=== PATIENT | male | born 1940 | race Two or more races ===

== ENCOUNTER 2021-12-24 08:44 | Outpatient (REF) | payer OTHER, SELFPAY ==
[2021-12-24 09:16] LABS: MANUAL DIFF FLAG NO
[2021-12-24 09:51] LABS: Basophils Percent Auto 0.5 % (0-2); Eosinophils Absolute Auto 0.1 X10*3/uL (0.0-0.4); Eosinophils Percent Auto 0.7 % (0-4); Hematocrit 45.8 % (42.0-52.0); Hemoglobin 14.8 g/dl (14.0-18.0); Imm Gran Abs Auto 0.01 X10*3/uL (0.00-0.03); Imm Gran Pct Auto 0.1 % (0.0-0.4); Lymphocytes Absolute Auto 2.5 X10*3/uL (1.2-4.9); Lymphocytes Percent Auto 29.5 % (20-40); Mean Corpuscular HGB Conc 32.3 g/dl (31.0-36.0); Mean Corpuscular Hemoglobin 28.4 pg (27.0-33.0); Mean Corpuscular Volume 87.7 fL (80.0-98.0); Monocytes Absolute Auto 0.9 X10*3/uL (0.1-1.2); Monocytes Percent Auto 11.3 % (2-11); Neutrophils Absolute Auto 4.8 x10*3/uL (2.0-8.3); Neutrophils Percent Auto 57.9 % (45-73); Platelet Count 242 X10*3/uL (160-400); Red Blood Count 5.22 X10*6/uL (4.60-5.80); Red Cell Distribution Width 12.7 % (11.0-16.0); White Blood Count 8.3 X10*3/uL (4.8-10.8)
[2021-12-24 10:20] LABS: Alanine Aminotransferase 15 U/L (0-40); Albumin Level 4.3 g/dL (3.5-5.0); Alkaline Phosphatase 64 U/L (39-117); Anion Gap 15 (12-20); Aspartate Amino Transferase 17 U/L (5-37); Bilirubin Total 0.7 mg/dL (0.0-1.0); Blood Urea Nitrogen 19 mg/dL (9-16); Calcium 9.8 mg/dL (8.4-10.2); Carbon Dioxide 26 mmol/L (22-29); Chloride 104 mmol/L (96-108); Cholesterol 185 mg/dL; Estimated Glomerular Filt Rate 49; Glucose Fasting 145 mg/dL (60-99); HDL Cholesterol 37 mg/dL; LDL Cholesterol Calculated 125 mg/dl; Potassium 4.1 mmol/L (3.3-5.1); Sodium 141 mmol/L (135-145); Total Protein 8.1 g/dL (6.5-8.0); Triglycerides 116 mg/dL
[2021-12-24 10:27] LABS: Estimated Average Glucose 154 mg/dL
[2021-12-24 10:34] LABS: Prostate Specific Antigen Scr 3.32 ng/mL (<0.05-4.0); TSH reflex Free T4 0.69 uIU/mL (0.32-4.0)
[2021-12-24 10:55] LABS: Folate 5.6 ng/mL (> or = 4.0); Vitamin B12 250 pg/mL (200-900)
[2021-12-29 13:46] LABS: Vitamin D 25-OH, D2 <4 ng/mL; Vitamin D 25-OH, D3 18 ng/mL; Vitamin D 25-OH, Total 18 ng/mL (30-100)
== END 2021-12-24 08:45 | disposition home or self-care (01) ==
LOC: HO.LAB 08:44
PROVIDERS: PCP Nurse Practitioner Acute Care; Visit Provider Nurse Practitioner Acute Care
DX: Z12.5 Encounter for screening for malignant neoplasm of prostate (principal); E66.9 Obesity, unspecified; I10 Essential (primary) hypertension; N40.0 Benign prostatic hyperplasia without lower urinary tract symptoms; K21.9 Gastro-esophageal reflux disease without esophagitis
CPT/HCPCS: 36415; 80053; 80061; 82306; 82607; 82746; 83036; 84153; 84443; 85025

== ENCOUNTER 2022-08-05 08:21 | Outpatient (REF) | payer OTHER, SELFPAY ==
[2022-08-05 08:31] LABS: MANUAL DIFF FLAG NO
[2022-08-05 08:53] LABS: Basophils Percent Auto 0.5 % (0-2); Eosinophils Absolute Auto 0.1 X10*3/uL (0.0-0.4); Hemoglobin 13.7 g/dl (14.0-18.0); Imm Gran Abs Auto 0.03 X10*3/uL (0.00-0.03); Imm Gran Pct Auto 0.4 % (0.0-0.4); Mean Corpuscular HGB Conc 32.6 g/dl (31.0-36.0); Mean Corpuscular Hemoglobin 28.6 pg (27.0-33.0); Mean Corpuscular Volume 87.7 fL (80.0-98.0); Mean Platelet Volume 10.4 fL (9.4-12.4); Monocytes Absolute Auto 0.8 X10*3/uL (0.1-1.2); Monocytes Percent Auto 10.3 % (2-11); Neutrophils Absolute Auto 4.1 x10*3/uL (2.0-8.3); Neutrophils Percent Auto 50.8 % (45-73); Platelet Count 281 X10*3/uL (160-400); Red Blood Count 4.79 X10*6/uL (4.60-5.80); Red Cell Distribution Width 12.7 % (11.0-16.0); White Blood Count 8.1 X10*3/uL (4.8-10.8)
[2022-08-05 09:26] LABS: Alanine Aminotransferase 10 U/L (0-40); Albumin Level 4.4 g/dL (3.5-5.0); Alkaline Phosphatase 54 U/L (39-117); Anion Gap 15 (12-20); Aspartate Amino Transferase 16 U/L (5-37); Bilirubin Total 0.5 mg/dL (0.0-1.0); Blood Urea Nitrogen 18 mg/dL (9-16); Calcium 10.2 mg/dL (8.4-10.2); Carbon Dioxide 28 mmol/L (22-29); Chloride 103 mmol/L (96-108); Cholesterol 172 mg/dL; Estimated Glomerular Filt Rate 49; Glucose Fasting 119 mg/dL (60-99); HDL Cholesterol 40 mg/dL; LDL Cholesterol Calculated 112 mg/dl; Sodium 142 mmol/L (135-145); Total Protein 7.6 g/dL (6.5-8.0); Triglycerides 103 mg/dL
[2022-08-05 13:14] LABS: Estimated Average Glucose 131 mg/dL; Hemoglobin A1C 151.0256 umol/L; Hemoglobin A1c % 6.2 %
[2022-08-09 16:26] LABS: Vitamin D 25-OH, D2 <4 ng/mL; Vitamin D 25-OH, D3 29 ng/mL; Vitamin D 25-OH, Total 29 ng/mL (30-100)
== END 2022-08-05 08:22 | disposition home or self-care (01) ==
LOC: HO.LAB 08:21
PROVIDERS: PCP Internal Medicine; Visit Provider Nurse Practitioner Acute Care
DX: E11.9 Type 2 diabetes mellitus without complications (principal); E55.9 Vitamin D deficiency, unspecified; E78.5 Hyperlipidemia, unspecified
CPT/HCPCS: 36415; 80053; 80061; 82306; 83036; 85025

== ENCOUNTER 2023-02-04 08:34 | Outpatient (REF) | payer OTHER, SELFPAY ==
[2023-02-04 08:45] LABS: MANUAL DIFF FLAG NO
[2023-02-04 09:42] LABS: Basophils Absolute Auto 0.1 X10*3/uL (0.0-0.2); Eosinophils Absolute Auto 0.1 X10*3/uL (0.0-0.4); Eosinophils Percent Auto 1.4 % (0-4); Hematocrit 39.9 % (42.0-52.0); Hemoglobin 13.2 g/dl (14.0-18.0); Imm Gran Abs Auto 0.02 X10*3/uL (0.00-0.03); Imm Gran Pct Auto 0.2 % (0.0-0.4); Lymphocytes Absolute Auto 2.7 X10*3/uL (1.2-4.9); Lymphocytes Percent Auto 32.3 % (20-40); Mean Corpuscular HGB Conc 33.1 g/dl (31.0-36.0); Mean Corpuscular Volume 87.7 fL (80.0-98.0); Mean Platelet Volume 10.8 fL (9.4-12.4); Monocytes Absolute Auto 0.9 X10*3/uL (0.1-1.2); Monocytes Percent Auto 10.4 % (2-11); Neutrophils Absolute Auto 4.5 x10*3/uL (2.0-8.3); Neutrophils Percent Auto 54.7 % (45-73); Platelet Count 297 X10*3/uL (160-400); Red Blood Count 4.55 X10*6/uL (4.60-5.80); Red Cell Distribution Width 13.1 % (11.0-16.0); White Blood Count 8.3 X10*3/uL (4.8-10.8)
[2023-02-04 09:46] LABS: Appearance Urine Clear; Color Urine Yellow; Glucose Urine UA Negative (Negative); Leukocyte Esterase Urine Negative (Negative); Nitrite Urine Negative (Negative); Urine Blood Negative (Negative); Urine Ketones Negative (Negative); Urine Protein Negative (Neg-Trace)
[2023-02-04 09:59] LABS: Estimated Average Glucose 134 mg/dL; Hemoglobin A1c % 6.3 %
[2023-02-04 11:25] LABS: Microalbum/Creatinine Ratio Ur 8.4 ug/mg cr
[2023-02-04 11:49] LABS: Alanine Aminotransferase 11 U/L (0-40); Albumin Level 4.3 g/dL (3.5-5.0); Alkaline Phosphatase 57 U/L (39-117); Anion Gap 17 (12-20); Aspartate Amino Transferase 15 U/L (5-37); Bilirubin Total 0.9 mg/dL (0.0-1.0); Blood Urea Nitrogen 22 mg/dL (9-16); Calcium 10.2 mg/dL (8.4-10.2); Carbon Dioxide 26 mmol/L (22-29); Chloride 104 mmol/L (96-108); Cholesterol 172 mg/dL; Estimated Glomerular Filt Rate 45; Glucose Fasting 113 mg/dL (60-99); HDL Cholesterol 40 mg/dL; LDL Cholesterol Calculated 112 mg/dl; Potassium 4.3 mmol/L (3.3-5.1); Sodium 143 mmol/L (135-145); Total Protein 7.5 g/dL (6.5-8.0); Triglycerides 100 mg/dL
[2023-02-04 11:57] LABS: Folate 7.3 ng/mL (> or = 4.0); TSH reflex Free T4 0.82 uIU/mL (0.32-4.0); Vitamin B12 655 pg/mL (200-900); Vitamin D 25-OH Total 23.9 ng/mL (>30)
== END 2023-02-04 08:35 | disposition home or self-care (01) ==
LOC: HO.LAB 08:34
PROVIDERS: PCP Internal Medicine; Visit Provider Internal Medicine
DX: R30.0 Dysuria (principal); E53.8 Deficiency of other specified B group vitamins; I10 Essential (primary) hypertension; E11.9 Type 2 diabetes mellitus without complications; E55.9 Vitamin D deficiency, unspecified; E78.00 Pure hypercholesterolemia, unspecified
CPT/HCPCS: 36415; 80053; 80061; 81003; 82043; 82306; 82607; 82746; 83036; 84443; 85025

== ENCOUNTER 2023-08-13 08:02 | Outpatient (REF) | payer OTHER, SELFPAY ==
[2023-08-13 08:18] LABS: MANUAL DIFF FLAG NO
[2023-08-13 09:05] LABS: Basophils Absolute Auto 0.1 X10*3/uL (0.0-0.2); Basophils Percent Auto 0.7 % (0-2); Eosinophils Absolute Auto 0.1 X10*3/uL (0.0-0.4); Eosinophils Percent Auto 1.5 % (0-4); Hematocrit 39.2 % (42.0-52.0); Hemoglobin 12.6 g/dl (14.0-18.0); Imm Gran Abs Auto 0.02 X10*3/uL (0.00-0.03); Imm Gran Pct Auto 0.3 % (0.0-0.4); Lymphocytes Absolute Auto 2.4 X10*3/uL (1.2-4.9); Lymphocytes Percent Auto 33.8 % (20-40); Mean Corpuscular HGB Conc 32.1 g/dl (31.0-36.0); Mean Corpuscular Hemoglobin 27.8 pg (27.0-33.0); Mean Corpuscular Volume 86.3 fL (80.0-98.0); Mean Platelet Volume 10.8 fL (9.4-12.4); Monocytes Absolute Auto 0.7 X10*3/uL (0.1-1.2); Monocytes Percent Auto 9.5 % (2-11); Neutrophils Absolute Auto 3.9 x10*3/uL (2.0-8.3); Neutrophils Percent Auto 54.2 % (45-73); Platelet Count 258 X10*3/uL (160-400); Red Blood Count 4.54 X10*6/uL (4.60-5.80); Red Cell Distribution Width 13.3 % (11.0-16.0); White Blood Count 7.2 X10*3/uL (4.8-10.8)
[2023-08-13 09:22] LABS: Estimated Average Glucose 137 mg/dL; Hemoglobin A1c % 6.4 % (<6.0)
[2023-08-13 10:04] LABS: Alanine Aminotransferase 8 U/L (0-40); Albumin Level 3.9 g/dL (3.5-5.0); Alkaline Phosphatase 50 U/L (39-117); Anion Gap 13 (12-20); Aspartate Amino Transferase 13 U/L (5-37); Bilirubin Total 0.4 mg/dL (0.0-1.0); Blood Urea Nitrogen 16 mg/dL (9-16); Calcium 9.4 mg/dL (8.4-10.2); Carbon Dioxide 25 mmol/L (22-29); Chloride 110 mmol/L (96-108); Cholesterol 153 mg/dL (<200); Estimated Glomerular Filt Rate 47; Glucose Fasting 125 mg/dL (60-99); HDL Cholesterol 40 mg/dL (>40); LDL Cholesterol Calculated 100 mg/dL (<100); Potassium 3.6 mmol/L (3.3-5.1); Sodium 144 mmol/L (135-145); Total Protein 7.3 g/dL (6.5-8.0); Triglycerides 68 mg/dL (<150)
[2023-08-13 10:17] LABS: Appearance Urine Clear; Color Urine Yellow; Glucose Urine UA Negative (Negative); Leukocyte Esterase Urine Negative (Negative); Nitrite Urine Negative (Negative); Urine Blood Negative (Negative); Urine Ketones Negative (Negative); Urine Protein Trace mg/dL (Neg-Trace)
[2023-08-13 10:22] LABS: TSH reflex Free T4 0.77 uIU/mL (0.32-4.0)
== END 2023-08-13 08:03 | disposition home or self-care (01) ==
LOC: HO.LAB 08:02
PROVIDERS: PCP Internal Medicine; Visit Provider Internal Medicine
DX: E11.9 Type 2 diabetes mellitus without complications (principal); E78.00 Pure hypercholesterolemia, unspecified; E55.9 Vitamin D deficiency, unspecified; I10 Essential (primary) hypertension; R30.0 Dysuria
CPT/HCPCS: 36415; 80053; 80061; 81003; 82306; 83036; 84443; 85025

== ENCOUNTER 2023-08-19 09:34 | Outpatient (AMB) | payer OTHER, SELFPAY ==
[2023-08-19 09:41] VITALS: BP 130/80; PULSE 59; O2SAT 98; BMI 33.1
--- NOTE | 2023-08-19 09:41 | MHC.PC.OV ---
Vital Signs 08/19/23 09:41 Height 5 ft 4 in Weight 193 lb BMI 33.1 BP 130/80 Blood Pressure Location Lt brachial Position Sitting Pulse 59 Pulse Source Pulse Oximeter Pulse Oximetry (%) 98 Oxygen Delivery Method Room Air Intake Visit Reasons: 6 month f/u Intake Note: Patient here for a 6 month follow up Cloud Administrator Required: No Accompanied by: Self / Same As Patient Allergies No Known Allergies Allergy (Verified 08/19/23 10:20) Medication List - Last Reconciled 08/19/23 by Jeronimo Bryant MD blood sugar diagnostic ([employer]Touch Verio test strips) As directed blood-glucose meter ([employer] Verio Meter) As directed blood-glucose meter ([facility] Blood Glucose Monitor) As directed calcitriol 0.25 mcg PO DAILY cyanocobalamin (vitamin B-12) 1,000 mcg PO DAILY 90 days losartan-hydrochlorothiazide 100-25 mg 1 tab PO DAILY metformin 500 mg PO BID omeprazole 20 mg PO DAILY tamsulosin 0.4 mg PO DAILY Tobacco use date assessed: 02/10/23 Fall risk assessment: No Falls in past year Last assessed Fall Risk: 08/19/23 Dental Screening Dental Screen Date: 08/19/23 Did you have a dental visit in the last 12 months?: Yes Did you have a dental problem in the last 6 months where you did not have access to dental care?: No Was dental information given to patient?: Patient has dentist HPI 6 month f/u HPI Details Patient comes in today for his follow up visit States that he feels okay He denies any headaches or dizziness Denies any chest pains, no SOB No nausea/vomiting, no abdominal pain No change in bowel habits noted Needs a few of his Rx refilled States that he is scheduled to see Dr. Deanna Haines in [place] in November 2023 for his next thyroid follow up appt Had his follow up labs done last week - to discuss his results [facility] Medical History (Updated 08/25/23 @ 00:05 by Jeronimo Bryant MD) Chronic kidney disease, stage III (moderate) Graves' ophthalmopathy Graves disease Obesity (BMI 30-39.9) Pure hypercholesterolemia Diabetes mellitus Benign essential hypertension GERD without esophagitis BPH (benign prostatic hyperplasia) Surgical History (Updated 08/19/23 @ 10:38 by Jeronimo Bryant MD) Hx of cataract extraction (~05/2016) History of laser refractive surgery (~06/2014) Hx of cholecystectomy Hx of colonoscopy Family History (Updated 08/19/23 @ 10:40 by Jeronimo Bryant MD) Father Prostate cancer Brother Type 2 diabetes mellitus Sister Hyperthyroidism Social History (Updated 08/19/23 @ 10:40 by Jeronimo Bryant MD) Housing: House Patient Tobacco Use Status: Former Tobacco user Tobacco use type: Cigarette e-Cigarette/Vaping Use: Never Used service: No Current occupational status: retired Cognitive needs: No Hearing needs: No Vision needs: Yes Questionnaire Thrive Questionnaire Date Thrive assessed: 02/10/23 JAMEY-7 AMB Questionnaire JAMEY-7 Date JAMEY - 7 assessed: 02/10/23 Source: Developed by Drs. Anup Dupont, Gina Zhang, Darinel Morrison and colleagues, with an educational dariusz from [employer]. Review of Systems Const Denies fatigue, Denies fever(s) and Denies headache(s) ENT Denies dysphagia, Denies dizziness, Denies otalgia, Denies headache(s), Denies odynophagia and Denies sore throat Card Denies chest pain, Denies palpitations and Denies dyspnea Resp Denies cough, Denies dyspnea and Denies wheezing GI Denies abdominal pain, Denies constipation, Denies dysphagia, Denies heartburn, Denies diarrhea, Denies nausea, Denies odynophagia and Denies vomiting Denies dysuria, Denies nocturia and Denies urinary frequency Musc Denies back pain and Denies arthralgias Skin/Breast Denies rash Neuro Denies dizziness and Denies headache(s) Endo Denies fatigue and Denies palpitations Aller/Immun Denies wheezing Physical exam (Primary Care) Vital Signs: Last Vital Signs Pulse 59 08/19/23 09:41 BP 130/80 08/19/23 09:41 Pulse Ox 98 08/19/23 09:41 Oxygen Delivery Method Room Air 08/19/23 09:41 BMI result Body Mass Index 33.1 Tobacco/Smoking Status: Tobacco use Status Tobacco use date assessed 02/10/23 08/19/23 09:45 Patient Tobacco Use Status Never used Tobacco 08/19/23 09:45 e-Cigarette/Vaping Use Never Used 08/19/23 09:45 Thrive Assessment: Date of Thrive Assessment Date Thrive assessed 02/10/23 08/19/23 09:45 Const General: no acute distress and alert HENMT Ears: TM's normal bilaterally and EAC's normal Throat: Yes posterior oropharynx normal and Yes tonsils normal (no TP congestion) Neck Neck: Yes no lymphadenopathy and Yes supple Resp Auscultation: clear to auscultation bilaterally, no rales and no wheezes Cardio Rate: regular rate Rhythm: regular rhythm Heart sounds: no murmurs GI Palpation (GI): Soft to palpation and nontender Auscultation: normal bowel sounds General: Yes no CVA tenderness Back/Spine/Pelvis Back: no CVA tenderness Thoracic/Lumbar Spine: No lumbar spinal tenderness Skin Rashes: no rashes Extrem General: Yes no clubbing, cyanosis or edema Results Reviewed Results Reviewed: Laboratory Tests 08/13/23 08/13/23 08/13/23 08:12 08:18 08:18 WBC 7.2 Hgb 12.6 L Hct 39.2 L Plt Count 258 Sodium 144 Potassium 3.6 Creatinine 1.45 H Estimated GFR 47 Fasting Glucose 125 H Hemoglobin A1c % 6.4 H Calcium 9.4 D AST 13 ALT 8 Triglycerides 68 Cholesterol 153 LDL Cholesterol, Calc 100 H HDL Cholesterol 40 L 25-OH Vitamin D Total 23.0 L TSH 0.77 Ur Specific [place] 1.020 Urine Protein Trace Urine Glucose (UA) Negative Urine Blood Negative Assessment and Plan Assessment & Plan (1) Diabetes mellitus: Code(s): E11.9 - Type 2 diabetes mellitus without complications Qualifiers: Diabetes mellitus complication status: without complication Diabetes mellitus fdc insulin use: without intermediate project manager use Diabetes mellitus type: type 2 Qualified Code(s): E11.9 - Type 2 diabetes mellitus without complications Plan: HgbA1c was at 6.4% on his labs done last week; was at 6.3% previously - goal is <7.0% Reinforced diabetic diet Continue Metformin 500 mg BID - Rx refilled (2) Benign essential hypertension: Code(s): I10 - Essential (primary) hypertension Plan: Reinforced low sodium diet - goal is systolic BP of at least 130 to 140 mm or less Continue Losartan-HCT 100-25 mg QD (Rx refilled); he was also previously on Amlodipine 5 mg QD but this appears to have been discontinued months ago and his blood pressure has been doing okay on Losartan-HCT alone Patient is advised to continue monitoring his blood pressure regularly (3) Pure hypercholesterolemia: Code(s): E78.00 - Pure hypercholesterolemia, unspecified Plan: Results of his labs done last week reviewed and discussed with patient - lipids are at goal and have improved slightly from previous Reinforced low cholesterol diet Will recheck his labs and fasting lipids in 6 months for follow up (4) Graves disease: Comment: hyperthyroidism - in remission Code(s): E05.00 - Thyrotoxicosis with diffuse goiter without thyrotoxic crisis or storm Plan: S/P 3 courses of Tx with MMI (07/2010 to 12/2011; 01/2012 to 01/2013 and 12/2013 to 12/2014) Patient is presently clinically euthyroid with no acute symptoms TSH was normal on his recent labs; will continue to monitor TFTs/TSH regularly Follow up with endocrinology (sees Dr. Deanna Haines) as scheduled - has appt coming up in November 2023 (5) Chronic kidney disease, stage III (moderate): Code(s): N18.30 - Chronic kidney disease, stage 3 unspecified Qualifiers: Chronic kidney disease stage 3 subtype: stage 3a (GFR 45-59) Qualified Code(s): N18.31 - Chronic kidney disease, stage 3a Plan: Stable Will continue to monitor his GFR and renal function closely (6) Vitamin D deficiency: Code(s): E55.9 - Vitamin D deficiency, unspecified Plan: Continue Calcitriol 0.25 mcg QD - cautioned that his Vitamin D level has again dropped off slightly from previous Will add Vitamin D3 1000 units QD (7) GERD without esophagitis: Code(s): K21.9 - Gastro-esophageal reflux disease without esophagitis Plan: Dietary restrictions reinforced Continue Omeprazole 20 mg QD (8) BPH (benign prostatic hyperplasia): Code(s): N40.0 - Benign prostatic hyperplasia without lower urinary tract symptoms Qualifiers: Lower urinary tract symptom detail: urinary hesitancy Lower urinary tract symptom presence: symptoms present Qualified Code(s): N40.1 - Benign prostatic hyperplasia with lower urinary tract symptoms; R39.11 - Hesitancy of micturition Plan: Continue Tamsulosin 0.4 mg Q HS Follow up with urology as scheduled (9) Obesity (BMI 30-39.9): Code(s): E66.9 - Obesity, unspecified Plan: Reinforced diet/exercise as tolerated/lose weight Plan To return in 6 months for his next annual physical examination Orders: Orders Comprehensive [place]. Panel Fast 6 Months E78.00 - Pure hypercholesterolemia, unspecified, Z00.00 - Encounter for general adult medical examination without abnormal findings Microalbumin, Random (w Creat) 6 Months E11.9 - Type 2 diabetes mellitus without complications, Z00.00 - Encounter for general adult medical examination without abnormal findings TSH reflex Free T4 6 Months E78.00 - Pure hypercholesterolemia, unspecified, Z00.00 - Encounter for general adult medical examination without abnormal findings Vitamin D 25-OH Total 6 Months E55.9 - Vitamin D deficiency, unspecified, Z00.00 - Encounter for general adult medical examination without abnormal findings Complete Blood Count Auto Diff 6 Months I10 - Essential (primary) hypertension, Z00.00 - Encounter for general adult medical examination without abnormal findings Lipid Panel 6 Months E78.00 - Pure hypercholesterolemia, unspecified, Z00.00 - Encounter for general adult medical examination without abnormal findings Hemoglobin A1c 6 Months E11.9 - Type 2 diabetes mellitus without complications, Z00.00 - Encounter for general adult medical examination without abnormal findings Vitamin B12 and Folate 6 Months E53.8 - Deficiency of other specified B group vitamins, Z00.00 - Encounter for general adult medical examination without abnormal findings UA CC w/rflx Micro + Cult 6 Months R30.0 - Dysuria, Z00.00 - Encounter for general adult medical examination without abnormal findings Prostate Specific Antigen 6 Months N40.0 - Benign prostatic hyperplasia without lower urinary tract symptoms, Z00.00 - Encounter for general adult medical examination without abnormal findings Medications: New cholecalciferol (vitamin D3) 25 mcg PO DAILY 90 days 90 caps 3RF E55.9 - Vitamin D deficiency, unspecified Changed From metformin 500 mg PO BID 180 tabs 1RF E11.9 - Type 2 diabetes mellitus without complications To metformin 500 mg PO BID 90 days 180 tabs 1RF E11.9 - Type 2 diabetes mellitus without complications From calcitriol 0.25 mcg PO DAILY 30 caps 2RF E55.9 - Vitamin D deficiency, unspecified To calcitriol 0.25 mcg PO DAILY 90 days 90 caps 3RF E55.9 - Vitamin D deficiency, unspecified From losartan-hydrochlorothiazide 100-25 mg 1 tab PO DAILY 90 tabs 1RF To losartan-hydrochlorothiazide 100-25 mg 1 tab PO DAILY 90 days 90 tabs 1RF Refilled cyanocobalamin (vitamin B-12) 1,000 mcg PO DAILY 90 days 90 tabs 3RF Coding Level of Care Code Est Pt Level 4 (06303) Diagnoses Type 2 diabetes mellitus without complication, without long-term current use of insulin E11.9 Diabetes mellitus complication status: without complication Diabetes mellitus intermediate project manager insulin use: without fdc use Diabetes mellitus type: type 2 Benign essential hypertension I10 Pure hypercholesterolemia E78.00 Graves disease E05.00 Stage 3a chronic kidney disease N18.31 Chronic kidney disease stage 3 subtype: stage 3a (GFR 45-59) Vitamin D deficiency E55.9 GERD without esophagitis K21.9 Benign prostatic hyperplasia with urinary hesitancy N40.1; R39.11 Lower urinary tract symptom detail: urinary hesitancy Lower urinary tract symptom presence: symptoms present Obesity (BMI 30-39.9) E66.9
== END 2023-08-19 10:34 | disposition home or self-care (01) ==
PROVIDERS: Visit Provider Internal Medicine
DX: I12.9 Hypertensive chronic kidney disease with stage 1 through stage 4 chronic kidney disease, or unspecified chronic kidney disease (principal); E11.22 Type 2 diabetes mellitus with diabetic chronic kidney disease; N18.31 Chronic kidney disease, stage 3a; E78.00 Pure hypercholesterolemia, unspecified; E05.00 Thyrotoxicosis with diffuse goiter without thyrotoxic crisis or storm; E55.9 Vitamin D deficiency, unspecified; K21.9 Gastro-esophageal reflux disease without esophagitis; N40.1 Benign prostatic hyperplasia with lower urinary tract symptoms; R39.11 Hesitancy of micturition; E66.9 Obesity, unspecified
CPT/HCPCS: 99214

== ENCOUNTER 2024-02-16 07:06 | Outpatient (REF) | payer OTHER, SELFPAY ==
[2024-02-16 07:23] LABS: MANUAL DIFF FLAG NO
[2024-02-16 07:49] LABS: Basophils Absolute Auto 0.1 X10*3/uL (0.0-0.2); Basophils Percent Auto 0.9 % (0-2); Eosinophils Absolute Auto 0.1 X10*3/uL (0.0-0.4); Eosinophils Percent Auto 1.7 % (0-4); Hematocrit 42.5 % (42.0-52.0); Hemoglobin 13.7 g/dl (14.0-18.0); Imm Gran Abs Auto 0.02 X10*3/uL (0.00-0.03); Imm Gran Pct Auto 0.3 % (0.0-0.4); Lymphocytes Absolute Auto 2.4 X10*3/uL (1.2-4.9); Lymphocytes Percent Auto 34.5 % (20-40); Mean Corpuscular HGB Conc 32.2 g/dl (31.0-36.0); Mean Corpuscular Hemoglobin 28.7 pg (27.0-33.0); Mean Corpuscular Volume 89.1 fL (80.0-98.0); Mean Platelet Volume 10.9 fL (9.4-12.4); Monocytes Absolute Auto 0.8 X10*3/uL (0.1-1.2); Monocytes Percent Auto 11.7 % (2-11); Neutrophils Absolute Auto 3.6 x10*3/uL (2.0-8.3); Neutrophils Percent Auto 50.9 % (45-73); Platelet Count 249 X10*3/uL (160-400); Red Blood Count 4.77 X10*6/uL (4.60-5.80); Red Cell Distribution Width 13.1 % (11.0-16.0)
[2024-02-16 07:57] LABS: Estimated Average Glucose 148 mg/dL; Hemoglobin A1c % 6.8 % (<6.0)
[2024-02-16 08:30] LABS: Alanine Aminotransferase 11 U/L (0-40); Albumin Level 4.2 g/dL (3.5-5.0); Alkaline Phosphatase 57 U/L (39-117); Anion Gap 16 (12-20); Aspartate Amino Transferase 11 U/L (5-37); Bilirubin Total 0.4 mg/dL (0.0-1.0); Blood Urea Nitrogen 29 mg/dL (9-16); Calcium 10.4 mg/dL (8.4-10.2); Carbon Dioxide 26 mmol/L (22-29); Chloride 106 mmol/L (96-108); Cholesterol 150 mg/dL (<200); Estimated Glomerular Filt Rate 40; Glucose Fasting 125 mg/dL (60-99); HDL Cholesterol 38 mg/dL (>40); LDL Cholesterol Calculated 93 mg/dL (<100); Potassium 3.9 mmol/L (3.3-5.1); Sodium 144 mmol/L (135-145); Total Protein 7.8 g/dL (6.5-8.0); Triglycerides 95 mg/dL (<150)
[2024-02-16 08:43] LABS: Creatinine Urine 143.36 mg/dL; Microalbum/Creatinine Ratio Ur 11.1 ug/mg cr (<30)
[2024-02-16 08:47] LABS: TSH reflex Free T4 0.82 uIU/mL (0.32-4.0); Vitamin D 25-OH Total 21.2 ng/mL (>30)
[2024-02-16 08:58] LABS: Folate 8.3 ng/mL (> or = 4.0); Prostate Specific Antigen 2.06 ng/mL (<0.05-4.0); Vitamin B12 352 pg/mL (200-900)
[2024-02-16 09:16] LABS: Appearance Urine Clear; Color Urine Yellow; Glucose Urine UA Negative (Negative); Leukocyte Esterase Urine Negative (Negative); Nitrite Urine Negative (Negative); PH 5.5 (5.0-9.0); Urine Blood Negative (Negative); Urine Ketones Negative (Negative); Urine Protein Negative (Neg-Trace)
== END 2024-02-16 07:07 | disposition home or self-care (01) ==
LOC: HO.LAB 07:06
PROVIDERS: PCP Internal Medicine; Visit Provider Internal Medicine
DX: Z00.00 Encounter for general adult medical examination without abnormal findings (principal); E55.9 Vitamin D deficiency, unspecified; E53.8 Deficiency of other specified B group vitamins; R30.0 Dysuria; E78.00 Pure hypercholesterolemia, unspecified; N40.0 Benign prostatic hyperplasia without lower urinary tract symptoms; E11.9 Type 2 diabetes mellitus without complications; I10 Essential (primary) hypertension; Z12.5 Encounter for screening for malignant neoplasm of prostate
CPT/HCPCS: 36415; 80053; 80061; 81003; 82043; 82306; 82570; 82607; 82746; 83036; 84153; 84443; 85025

== ENCOUNTER 2024-06-19 07:39 | Outpatient (REF) | payer OTHER, SELFPAY ==
[2024-06-19 08:19] LABS: MANUAL DIFF FLAG NO
[2024-06-19 08:57] LABS: Basophils Absolute Auto 0.1 X10*3/uL (0.0-0.2); Basophils Percent Auto 0.7 % (0-2); Eosinophils Absolute Auto 0.1 X10*3/uL (0.0-0.4); Eosinophils Percent Auto 1.7 % (0-4); Hematocrit 40.9 % (42.0-52.0); Hemoglobin 13.5 g/dl (14.0-18.0); Imm Gran Abs Auto 0.01 X10*3/uL (0.00-0.03); Imm Gran Pct Auto 0.1 % (0.0-0.4); Lymphocytes Absolute Auto 2.1 X10*3/uL (1.2-4.9); Lymphocytes Percent Auto 28.1 % (20-40); Mean Corpuscular Hemoglobin 29.2 pg (27.0-33.0); Mean Corpuscular Volume 88.3 fL (80.0-98.0); Mean Platelet Volume 11.2 fL (9.4-12.4); Monocytes Absolute Auto 0.7 X10*3/uL (0.1-1.2); Monocytes Percent Auto 9.9 % (2-11); Neutrophils Absolute Auto 4.5 x10*3/uL (2.0-8.3); Neutrophils Percent Auto 59.5 % (45-73); Platelet Count 221 X10*3/uL (160-400); Red Blood Count 4.63 X10*6/uL (4.60-5.80); Red Cell Distribution Width 13.3 % (11.0-16.0); White Blood Count 7.5 X10*3/uL (4.8-10.8)
[2024-06-19 09:36] LABS: Estimated Average Glucose 154 mg/dL
[2024-06-19 09:57] LABS: Alanine Aminotransferase 11 U/L (0-40); Alkaline Phosphatase 54 U/L (39-117); Anion Gap 11 (12-20); Aspartate Amino Transferase 14 U/L (5-37); Bilirubin Total 0.5 mg/dL (0.0-1.0); Blood Urea Nitrogen 19 mg/dL (9-16); Calcium 9.4 mg/dL (8.4-10.2); Carbon Dioxide 25 mmol/L (22-29); Chloride 110 mmol/L (96-108); Cholesterol 149 mg/dL (<200); Estimated Glomerular Filt Rate 47; Glucose Fasting 119 mg/dL (60-99); HDL Cholesterol 37 mg/dL (>40); LDL Cholesterol Calculated 100 mg/dL (<100); Potassium 3.7 mmol/L (3.3-5.1); Sodium 142 mmol/L (135-145); Total Protein 7.3 g/dL (6.5-8.0); Triglycerides 61 mg/dL (<150)
[2024-06-19 10:00] LABS: TSH reflex Free T4 0.76 uIU/mL (0.32-4.0); Vitamin D 25-OH Total 22.6 ng/mL (>30)
[2024-06-19 11:10] LABS: Appearance Urine Clear; Color Urine Yellow; Glucose Urine UA Negative (Negative); Leukocyte Esterase Urine Negative (Negative); Nitrite Urine Negative (Negative); PH 5.5 (5.0-9.0); Urine Blood Negative (Negative); Urine Ketones Negative (Negative); Urine Protein Trace mg/dL (Neg-Trace)
[2024-06-19 11:44] LABS: Creatinine Urine 119.34 mg/dL; Microalbum/Creatinine Ratio Ur 65.3 ug/mg cr (<30)
== END 2024-06-19 07:40 | disposition home or self-care (01) ==
LOC: HO.LAB 07:39
PROVIDERS: PCP Internal Medicine; Visit Provider Internal Medicine
DX: D64.9 Anemia, unspecified (principal); E78.00 Pure hypercholesterolemia, unspecified; E11.9 Type 2 diabetes mellitus without complications; R30.0 Dysuria; E55.9 Vitamin D deficiency, unspecified
CPT/HCPCS: 36415; 80053; 80061; 81003; 82043; 82306; 82570; 83036; 84443; 85025

== ENCOUNTER 2024-06-22 10:43 | Outpatient (AMB) | payer OTHER, SELFPAY ==
[2024-06-22 10:50] VITALS: BP 128/72; PULSE 77; O2SAT 95; BMI 34.7
--- NOTE | 2024-06-22 10:50 | A.OFFPC_ITS ---
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 Accompanied by: Self / Same As Patient Allergies No Known Allergies Allergy (Verified 06/22/24 11:48) Medication List - Last Reconciled 06/22/24 by Jeronimo Bryant MD blood sugar diagnostic (OneTouch Verio test strips) As directed blood-glucose meter (BooshakaTouch Verio Meter) As directed blood-glucose meter ([facility] Blood Glucose Monitor) As directed calcitriol 0.25 mcg PO DAILY 90 days cholecalciferol (vitamin D3) 25 mcg PO DAILY 90 days cyanocobalamin (vitamin B-12) 1,000 mcg PO DAILY 90 days losartan-hydrochlorothiazide 100-25 mg 1 tab PO DAILY 90 days metformin 500 mg PO BID 90 days omeprazole 20 mg PO DAILY tamsulosin 0.4 mg PO DAILY Tobacco use date assessed: 06/22/24 Fall risk assessment: No Falls in past year Last assessed Fall Risk: 06/22/24 Dental Screening Dental Screen Date: 06/22/24 Did you have a dental visit in the last 12 months?: No Did you have a dental problem in the last 6 months where you did not have access to dental care?: No Was dental information given to patient?: No HPI follow up HPI Details Patient comes in today for his follow up visit - I have not seen patient since August 2023 Patient states that he currently feels okay He denies any headaches or dizziness Denies any chest pains, no SOB No nausea/vomiting, no abdominal pain No change in bowel habits noted He had his follow up labs done a few days ago - to discuss his results [facility] [place] Medical History Chronic kidney disease, stage III (moderate) Graves' ophthalmopathy Graves disease Obesity (BMI 30-39.9) Pure hypercholesterolemia Diabetes mellitus Benign essential hypertension GERD without esophagitis BPH (benign prostatic hyperplasia) Surgical History Hx of cataract extraction (~05/2016) History of laser refractive surgery (~06/2014) Hx of cholecystectomy Hx of colonoscopy Family History Father Prostate cancer Brother Type 2 diabetes mellitus Sister Hyperthyroidism Social History Housing: House Patient Tobacco Use Status: Former Tobacco user Tobacco use type: Cigarette e-Cigarette/Vaping Use: Never Used service: No Current occupational status: retired Cognitive needs: No Hearing needs: No Vision needs: Yes Questionnaire PHQ-9 Over the last 2 weeks, how often have you been bothered by any of the following problems? 1. Little interest or pleasure in doing things: not at all 2. Feeling down, depressed, or hopeless: not at all 3. Trouble falling or staying asleep, or sleeping too much: not at all 4. Feeling tired or having little energy: not at all 5. Poor appetite or overeating: not at all 6. Feeling bad about yourself - or that you are a failure or have let yourself or your family down: not at all 7. Trouble concentrating on things, such as reading the newspaper or watching television: not at all 8. Moving or speaking so slowly that other people could have noticed. Or the opposite - being so fidgety or restless that you have been moving around a lot more than usual: not at all 9. Thoughts that you would be better off or of hurting yourself in some way: not at all Total score: 0 Depression Screening Interpretation: Negative Depression Screening Done: Yes 78912 - PHQ-9 Billing: Yes Source: Developed by Drs. Anup Dupont, Gina Zhang, Darinel Morrison and colleagues, with an educational dariusz from [employer]. Thrive Questionnaire Date Thrive assessed: 06/22/24 I am a: Patient What is your living situation today?: I have a steady place to live Within the past 12 months, did the food you bought not last and you didn't have the money to get more?: Never true Within the past 12 months, did you worry whether your food would run out before you got money to buy more?: Never true Do you have trouble paying for medicines?: No Do you have trouble getting transportation to medical appointments?: No Do you have trouble paying your heating and electricity bill?: No Do you have trouble taking care of your child, family member or friend?: No Do you have trouble with day-to-day activities such as bathing, preparing meals, shopping, managing finances, etc.?: No Are you currently unemployed and looking for a job?: No Are you interested in more education?: No Please select the resources that you would like help with: None Currently or been in a relationship where the following occur: No concerns reported THRIVE Score: 0 AUDIT C Alcohol Use Questionnaire (AUDIT-C) 1. How often do you have a drink containing alcohol?: Never 3. How often do you have six or more drinks on one occasion?: Never Total Score: 0 Score Reviewed/Action Taken: Yes JAMEY-7 AMB Questionnaire JAMEY-7 Date JAMEY - 7 assessed: 06/22/24 Feeling nervous, anxious, or on edge: 0 = Not at all Not being able to stop or control worryin = Not at all Worrying too much about different things: 0 = Not at all Trouble relaxin = Not at all Being so restless that it is hard to sit still: 0 = Not at all Becoming easily annoyed or irritable: 0 = Not at all Feeling afraid as if something awful might happen: 0 = Not at all Total JAMEY-7 score (0-4 normal; 5-9 mild; 10-14 moderate; 15-21 severe): 0 Source: Developed by Drs. Anup Dupont, Gina Zhang, Darinel Morrison and colleagues, with an educational dariusz from [employer]. Review of Systems Const Denies chills, Denies fatigue, Denies fever(s) and Denies headache(s) ENT Denies dysphagia, Denies dizziness, Denies otalgia, Denies headache(s), Denies neck pain, Denies odynophagia and Denies sore throat Card Denies chest pain, Denies palpitations and Denies dyspnea Resp Denies chest congestion, Denies cough and Denies dyspnea GI Denies abdominal pain, Denies constipation, Denies dysphagia, Denies heartburn, Denies diarrhea, Denies nausea, Denies odynophagia and Denies vomiting Denies dysuria, Denies nocturia and Denies urinary frequency Musc Denies back pain, Denies arthralgias and Denies neck pain Skin/Breast Denies rash Neuro Denies dizziness and Denies headache(s) Endo Denies fatigue and Denies palpitations Physical exam (Primary Care) Vital Signs: Last Vital Signs Pulse 77 06/22/24 10:50 BP 128/72 06/22/24 10:50 Pulse Ox 95 06/22/24 10:50 Oxygen Delivery Method Room Air 06/22/24 10:50 BMI result Body Mass Index 34.7 Tobacco/Smoking Status: Tobacco use Status Tobacco use date assessed 06/22/24 06/22/24 10:51 Patient Tobacco Use Status Former Tobacco user 06/22/24 10:51 Tobacco use type Cigarette 06/22/24 10:51 e-Cigarette/Vaping Use Never Used 06/22/24 10:51 PHQ-9: PHQ-9 Score PHQ-9: Total score 0 06/22/24 12:43 Depression Screening Interpretation: Negative Thrive Assessment: Date of Thrive Assessment Date Thrive assessed 06/22/24 06/22/24 10:51 Currently or been in a relationship where the following occur: No concerns reported Const General: no acute distress and alert HENMT Ears: TM's normal bilaterally and EAC's normal Throat: Yes posterior oropharynx normal and Yes tonsils normal (no TP congestion) Neck Neck: Yes no lymphadenopathy and Yes supple Thyroid: Thyroid normal Resp Auscultation: clear to auscultation bilaterally, no rales and no wheezes Cardio Rate: regular rate Rhythm: regular rhythm Heart sounds: no murmurs GI Palpation (GI): Soft to palpation and nontender Auscultation: normal bowel sounds General: Yes no CVA tenderness Back/Spine/Pelvis Back: no CVA tenderness Thoracic/Lumbar Spine: No lumbar spinal tenderness Skin Rashes: no rashes Extrem General: Yes no clubbing, cyanosis or edema Results Reviewed Results Reviewed: Laboratory Tests 06/19/24 06/19/24 08:00 08:17 WBC 7.5 Hgb 13.5 L Hct 40.9 L Plt Count 221 Sodium 142 Potassium 3.7 Creatinine 1.43 H Estimated GFR 47 Fasting Glucose 119 H Hemoglobin A1c % 7.0 H Calcium 9.4 D AST 14 ALT 11 Triglycerides 61 Cholesterol 149 LDL Cholesterol, Calc 100 H HDL Cholesterol 37 L 25-OH Vitamin D Total 22.6 L TSH 0.76 Ur Specific [place] 1.020 Urine Protein Trace Urine Glucose (UA) Negative Urine Blood Negative Urine Nitrite Negative Ur Leukocyte Esterase Negative Microalb/Creat Ratio 65.3 H Assessment and Plan Assessment & Plan (1) Diabetes mellitus: Code(s): E11.9 - Type 2 diabetes mellitus without complications Qualifiers: Diabetes mellitus type: type 2 Diabetes mellitus rib bender insulin use: without chcf use Diabetes mellitus complication status: without complication Qualified Code(s): E11.9 - Type 2 diabetes mellitus without complications Plan: His HgbA1c was at 7.0% on his labs done a few days ago; was previously at 6.8% back in February 2024 and 6.4% in August 2023 - goal is <7.0% Reinforced diabetic diet Continue Metformin 500 mg BID for now but advised that if he cannot get his diabetes back under better control or his HgbA1c goes up further, then we will need to make some changes or adjustments to his current Rx (2) Benign essential hypertension: Code(s): I10 - Essential (primary) hypertension Plan: Reinforced low sodium diet - goal is systolic BP of at least 130 to 140 mm or less Continue Losartan-HCT 100-25 mg QD; he was also previously on Amlodipine 5 mg QD but this appears to have been discontinued months ago and his blood pressure has been doing okay on Losartan-HCT alone so far Patient is reminded to continue monitoring his blood pressure regularly (3) Pure hypercholesterolemia: Code(s): E78.00 - Pure hypercholesterolemia, unspecified Plan: Results of his labs done a few days ago reviewed and discussed with patient - lipids are at goal but have increased slightly from his numbers done back in February 2024 Reinforced low cholesterol diet Will recheck his labs and fasting lipids in 4 months for follow up (4) Graves disease: Comment: hyperthyroidism - in remission Code(s): E05.00 - Thyrotoxicosis with diffuse goiter without thyrotoxic crisis or storm Plan: S/P 3 courses of Tx with MMI (07/2010 to 12/2011; 01/2012 to 01/2013 and 12/2013 to 12/2014) Patient is presently clinically euthyroid with no acute symptoms His TSH was again normal on his recent labs; will continue to monitor TFTs/TSH regularly Follow up with endocrinology (sees Dr. Deanna Haines) as scheduled (5) Chronic kidney disease, stage III (moderate): Code(s): N18.30 - Chronic kidney disease, stage 3 unspecified Qualifiers: Chronic kidney disease stage 3 subtype: stage 3a (GFR 45-59) Qualified Code(s): N18.31 - Chronic kidney disease, stage 3a Plan: Stable Will continue to monitor his GFR and renal function closely (6) Vitamin D deficiency: Code(s): E55.9 - Vitamin D deficiency, unspecified Plan: Continue Calcitriol 0.25 mcg QD and Vitamin D3 1000 units QD - he is cautioned that his Vitamin D level is still low on his recent labs (7) GERD without esophagitis: Code(s): K21.9 - Gastro-esophageal reflux disease without esophagitis Plan: Dietary restrictions reinforced Continue Omeprazole 20 mg QD (8) BPH (benign prostatic hyperplasia): Code(s): N40.0 - Benign prostatic hyperplasia without lower urinary tract symptoms Qualifiers: Lower urinary tract symptom presence: symptoms present Lower urinary tract symptom detail: urinary hesitancy Qualified Code(s): N40.1 - Benign prostatic hyperplasia with lower urinary tract symptoms; R39.11 - Hesitancy of micturition Plan: Continue Tamsulosin 0.4 mg Q HS Follow up with urology as scheduled (9) Obesity (BMI 30-39.9): Code(s): E66.9 - Obesity, unspecified Plan: Reinforced diet/exercise as tolerated/lose weight Plan Follow up in 4 months Orders: Orders Complete Blood Count Auto Diff 4 Months D64.9 - Anemia, unspecified Microalbumin, Random (w Creat) 10/22/24 E11.9 - Type 2 diabetes mellitus without complications Vitamin D 25-OH Total 10/22/24 E55.9 - Vitamin D deficiency, unspecified Vitamin B12 and Folate 10/22/24 E53.8 - Deficiency of other specified B group vitamins Thyroid Stimulating Hormone 10/22/24 E05.00 - Thyrotoxicosis with diffuse goit er without thyrotoxic crisis or storm Free T4 (Free Thyroxine) 10/22/24 E05.00 - Thyrotoxicosis with diffuse goiter without thyrotoxic crisis or storm Comprehensive [place]. Panel Fast 4 Months E78.00 - Pure hypercholesterolemia, unspecified Lipid Panel 4 Months E78.00 - Pure hypercholesterolemia, unspecified Hemoglobin A1c 4 Months E11.9 - Type 2 diabetes mellitus without complications UA CC w/rflx Micro + Cult 01/10/25 R30.0 - Dysuria Coding Level of Care Code Est Pt Level 4 (40446) Complex EM visit Add On G2211 Diagnoses Type 2 diabetes mellitus without complication, without long-term current use of insulin E11.9 Diabetes mellitus type: type 2 Diabetes mellitus rib bender insulin use: without chcf use Diabetes mellitus complication status: without complication Benign essential hypertension I10 Pure hypercholesterolemia E78.00 Graves disease E05.00 Stage 3a chronic kidney disease N18.31 Chronic kidney disease stage 3 subtype: stage 3a (GFR 45-59) Vitamin D deficiency E55.9 GERD without esophagitis K21.9 Benign prostatic hyperplasia with urinary hesitancy N40.1; R39.11 Lower urinary tract symptom presence: symptoms present Lower urinary tract symptom detail: urinary hesitancy Obesity (BMI 30-39.9) E66.9
== END 2024-06-22 11:55 | disposition home or self-care (01) ==
PROVIDERS: PCP Internal Medicine; Visit Provider Internal Medicine
DX: I12.9 Hypertensive chronic kidney disease with stage 1 through stage 4 chronic kidney disease, or unspecified chronic kidney disease (principal); E11.22 Type 2 diabetes mellitus with diabetic chronic kidney disease; N18.31 Chronic kidney disease, stage 3a; E78.00 Pure hypercholesterolemia, unspecified; E05.00 Thyrotoxicosis with diffuse goiter without thyrotoxic crisis or storm; E55.9 Vitamin D deficiency, unspecified; K21.9 Gastro-esophageal reflux disease without esophagitis; N40.1 Benign prostatic hyperplasia with lower urinary tract symptoms; R39.11 Hesitancy of micturition; E66.9 Obesity, unspecified
CPT/HCPCS: 99214; G2211

== ENCOUNTER 2024-10-26 09:08 | Outpatient (REF) | payer MEDICARE, SELFPAY ==
[2024-10-26 09:28] LABS: MANUAL DIFF FLAG NO
[2024-10-26 09:51] LABS: Basophils Absolute Auto 0.1 X10*3/uL (0.0-0.2); Basophils Percent Auto 0.7 % (0-2); Eosinophils Absolute Auto 0.1 X10*3/uL (0.0-0.4); Eosinophils Percent Auto 0.7 % (0-4); Hematocrit 39.3 % (42.0-52.0); Hemoglobin 13.1 g/dl (14.0-18.0); Imm Gran Abs Auto 0.02 X10*3/uL (0.00-0.03); Imm Gran Pct Auto 0.3 % (0.0-0.4); Lymphocytes Absolute Auto 1.8 X10*3/uL (1.2-4.9); Lymphocytes Percent Auto 25.3 % (20-40); Mean Corpuscular HGB Conc 33.3 g/dl (31.0-36.0); Mean Corpuscular Hemoglobin 28.9 pg (27.0-33.0); Mean Corpuscular Volume 86.8 fL (80.0-98.0); Mean Platelet Volume 10.9 fL (9.4-12.4); Monocytes Absolute Auto 0.8 X10*3/uL (0.1-1.2); Monocytes Percent Auto 11.8 % (2-11); Neutrophils Absolute Auto 4.3 x10*3/uL (2.0-8.3); Neutrophils Percent Auto 61.2 % (45-73); Platelet Count 249 X10*3/uL (160-400); Red Blood Count 4.53 X10*6/uL (4.60-5.80); Red Cell Distribution Width 13.3 % (11.0-16.0)
[2024-10-26 10:03] LABS: Estimated Average Glucose 157 mg/dL; Hemoglobin A1c % 7.1 % (<6.0); Total Hemoglobin (HGBA1C) 3420.6352 umol/L
[2024-10-26 10:53] LABS: Alanine Aminotransferase 17 U/L (0-40); Albumin Level 3.9 g/dL (3.5-5.0); Alkaline Phosphatase 59 U/L (39-117); Anion Gap 11 (12-20); Aspartate Amino Transferase 24 U/L (5-37); Bilirubin Total 0.6 mg/dL (0.0-1.0); Blood Urea Nitrogen 16 mg/dL (9-16); Carbon Dioxide 25 mmol/L (22-29); Chloride 110 mmol/L (96-108); Cholesterol 144 mg/dL (<200); Estimated Glomerular Filt Rate 44; Free T4 (Free Thyroxine) 1.24 ng/dL (0.71-1.85); Glucose Fasting 136 mg/dL (60-99); HDL Cholesterol 36 mg/dL (>40); LDL Cholesterol Calculated 91 mg/dL (<100); Potassium 3.7 mmol/L (3.3-5.1); Sodium 142 mmol/L (135-145); Total Protein 7.4 g/dL (6.5-8.0); Triglycerides 85 mg/dL (<150); Vitamin D 25-OH Total 21.9 ng/mL (>30)
[2024-10-26 10:58] LABS: Folate 8.2 ng/mL (> or = 4.0); Vitamin B12 310 pg/mL (200-900)
[2024-10-26 12:06] LABS: Appearance Urine Clear; Color Urine Yellow; Glucose Urine UA Negative (Negative); Leukocyte Esterase Urine Negative (Negative); Nitrite Urine Negative (Negative); PH 5.5 (5.0-9.0); UMIC TRIGGER UACC YES; Urine Blood Negative (Negative); Urine Ketones Negative (Negative); Urine Protein 30 (1+) mg/dL (Neg-Trace)
[2024-10-26 12:09] LABS: Bacteria Urine None Seen (None Seen); Hyaline Casts Urine 0-2 /LPF (0-2); RBC Urine 0-2 /HPF (0-2); Squamous Epithelial Cell Urine 0-2 /HPF (0-2); WBC Urine 0-5 /HPF (0-5)
[2024-10-26 12:55] LABS: Creatinine Urine 201.55 mg/dL; Microalbum/Creatinine Ratio Ur 99.7 ug/mg cr (<30)
== END 2024-10-26 09:09 | disposition home or self-care (01) ==
LOC: HO.LAB 09:08
PROVIDERS: PCP Internal Medicine; Visit Provider Internal Medicine
DX: D64.9 Anemia, unspecified (principal); E11.9 Type 2 diabetes mellitus without complications; E53.8 Deficiency of other specified B group vitamins; E05.00 Thyrotoxicosis with diffuse goiter without thyrotoxic crisis or storm; E78.00 Pure hypercholesterolemia, unspecified; E55.9 Vitamin D deficiency, unspecified; R30.0 Dysuria
CPT/HCPCS: 36415; 80053; 80061; 81001; 81003; 82043; 82306; 82570; 82607; 82746; 83036; 84439; 84443; 85025

== ENCOUNTER 2024-10-28 09:34 | Outpatient (AMB) | payer MEDICARE, SELFPAY ==
[2024-10-28 09:36] VITALS: BP 158/90; PULSE 110; TEMP 36.3; O2SAT 97; BMI 34.9
--- NOTE | 2024-10-28 09:36 | MHC.PC.OV ---
Vital Signs 10/28/24 09:36 Height 5 ft 4 in Weight 203 lb 4 oz BMI 34.9 BP 158/90 H Blood Pressure Location Lt brachial Position Sitting Pulse 110 H Pulse Source Pulse Oximeter Temp 97.3 F Temp Source Temporal Artery Scan Pulse Oximetry (%) 97 Oxygen Delivery Method Room Air Comment Patient has been out of his Rx, including his BP med, for over a week now Intake Visit Reasons: DM, HTN, CKD Efficiency Expert Required: No Accompanied by: Self / Same As Patient Allergies No Known Allergies Allergy (Verified 10/28/24 10:10) Medication List - Last Reconciled 10/28/24 by Jeronimo Bryant MD blood sugar diagnostic ([facility] Ver[facility] test strips) As directed blood-glucose meter ([facility] Verio Meter) As directed blood-glucose meter ([facility] Blood Glucose Monitor) As directed calcitriol 0.25 mcg PO DAILY 90 days cholecalciferol (vitamin D3) 25 mcg PO DAILY 90 days cyanocobalamin (vitamin B-12) 1,000 mcg PO DAILY 90 days losartan-hydrochlorothiazide 100-25 mg 1 tab PO DAILY 90 days metformin 500 mg PO BID 90 days omeprazole 20 mg PO DAILY tamsulosin 0.4 mg PO DAILY Tobacco use date assessed: 10/28/24 Fall risk assessment: No Falls in past year Last assessed Fall Risk: 10/28/24 Dental Screening Dental Screen Date: 10/28/24 Did you have a dental visit in the last 12 months?: No Did you have a dental problem in the last 6 months where you did not have access to dental care?: Yes Was dental information given to patient?: Patient has dentist HPI DM, HTN, CKD HPI Details Patient comes in today for his follow up visit States that he feels okay He denies any headaches or dizziness Denies any chest pains, no SOB No nausea/vomiting, no abdominal pain No change in bowel habits noted He needs all of his Rx refilled as he has been out of his meds, including his blood pressure Rx, for over a week now He had his follow up labs done a couple of days ago - to discuss his results [facility] Medical History Chronic kidney disease, stage III (moderate) Graves' ophthalmopathy Graves disease Obesity (BMI 30-39.9) Pure hypercholesterolemia Diabetes mellitus Benign essential hypertension GERD without esophagitis BPH (benign prostatic hyperplasia) Surgical History Hx of cataract extraction (~05/2016) History of laser refractive surgery (~06/2014) Hx of cholecystectomy Hx of colonoscopy Family History Father Prostate cancer Brother Type 2 diabetes mellitus Sister Hyperthyroidism Social History Housing: House Patient Tobacco Use Status: Former Tobacco user Tobacco use type: Cigarette e-Cigarette/Vaping Use: Never Used service: No Current occupational status: retired Cognitive needs: No Hearing needs: No Vision needs: Yes Questionnaire PHQ-9 Over the last 2 weeks, how often have you been bothered by any of the following problems? 1. Little interest or pleasure in doing things: not at all 2. Feeling down, depressed, or hopeless: not at all 3. Trouble falling or staying asleep, or sleeping too much: not at all 4. Feeling tired or having little energy: not at all 5. Poor appetite or overeating: not at all 6. Feeling bad about yourself - or that you are a failure or have let yourself or your family down: not at all 7. Trouble concentrating on things, such as reading the newspaper or watching television: not at all 8. Moving or speaking so slowly that other people could have noticed. Or the opposite - being so fidgety or restless that you have been moving around a lot more than usual: not at all 9. Thoughts that you would be better off or of hurting yourself in some way: not at all Total score: 0 Depression Screening Interpretation: Negative Depression Screening Done: Yes 68596 - PHQ-9 Billing: Yes Source: Developed by Drs. Anup Dupont, Gina Zhang, Darinel Morrison and colleagues, with an educational dariusz from [employer]. Thrive Questionnaire Date Thrive assessed: 10/28/24 I am a: Patient What is your living situation today?: I have a steady place to live Within the past 12 months, did the food you bought not last and you didn't have the money to get more?: Never true Within the past 12 months, did you worry whether your food would run out before you got money to buy more?: Never true Do you have trouble paying for medicines?: No Do you have trouble getting transportation to medical appointments?: No Do you have trouble paying your heating and electricity bill?: No Do you have trouble taking care of your child, family member or friend?: No Do you have trouble with day-to-day activities such as bathing, preparing meals, shopping, managing finances, etc.?: No Are you currently unemployed and looking for a job?: No Are you interested in more education?: No Please select the resources that you would like help with: None Currently or been in a relationship where the following occur: No concerns reported THRIVE Score: 0 AUDIT C Alcohol Use Questionnaire (AUDIT-C) 1. How often do you have a drink containing alcohol?: Never 3. How often do you have six or more drinks on one occasion?: Never Total Score: 0 Score Reviewed/Action Taken: Yes JAMEY-7 AMB Questionnaire JAEMY-7 Date JAMEY - 7 assessed: 10/28/24 Feeling nervous, anxious, or on edge: 0 = Not at all Not being able to stop or control worryin = Not at all Worrying too much about different things: 0 = Not at all Trouble relaxin = Not at all Being so restless that it is hard to sit still: 0 = Not at all Becoming easily annoyed or irritable: 0 = Not at all Feeling afraid as if something awful might happen: 0 = Not at all Total JAMEY-7 score (0-4 normal; 5-9 mild; 10-14 moderate; 15-21 severe): 0 Source: Developed by Drs. Anup Dupont, Gina Zhang, Darinel Morrison and colleagues, with an educational dariusz from [employer]. JAMEY-7 Assessment Billing JAMEY-7 Assessment Tool: JAMEY-7 Assessment 49289 Review of Systems Const Denies chills, Denies fatigue, Denies fever(s) and Denies headache(s) ENT Denies dysphagia, Denies dizziness, Denies otalgia, Denies headache(s), Denies neck pain, Denies odynophagia and Denies sore throat Card Denies chest pain, Denies palpitations and Denies dyspnea Resp Denies chest congestion, Denies cough and Denies dyspnea GI Denies abdominal pain, Denies constipation, Denies dysphagia, Denies heartburn, Denies diarrhea, Denies nausea, Denies odynophagia and Denies vomiting Denies dysuria, Denies nocturia and Denies urinary frequency Musc Denies back pain, Denies arthralgias and Denies neck pain Skin/Breast Denies rash Neuro Denies dizziness and Denies headache(s) Endo Denies fatigue and Denies palpitations Physical exam (Primary Care) Vital Signs: Last Vital Signs Temp 97.3 F 10/28/24 09:36 Pulse 110 H 10/28/24 09:36 BP 158/90 H 10/28/24 09:36 Pulse Ox 97 10/28/24 09:36 Oxygen Delivery Method Room Air 10/28/24 09:36 BMI result Body Mass Index 34.9 Tobacco/Smoking Status: Tobacco use Status Tobacco use date assessed 10/28/24 10/28/24 09:42 Patient Tobacco Use Status Former Tobacco user 10/28/24 09:42 Tobacco use type Cigarette 10/28/24 09:42 e-Cigarette/Vaping Use Never Used 10/28/24 09:42 PHQ-9: PHQ-9 Score PHQ-9: Total score 0 10/28/24 10:13 Depression Screening Interpretation: Negative Thrive Assessment: Date of Thrive Assessment Date Thrive assessed 10/28/24 10/28/24 09:42 Currently or been in a relationship where the following occur: No concerns reported Const General: no acute distress and alert HENMT Ears: TM's normal bilaterally and EAC's normal Throat: Yes posterior oropharynx normal and Yes tonsils normal (no TP congestion) Neck Neck: Yes supple and No lymphadenopathy Thyroid: Thyroid normal Resp Auscultation: clear to auscultation bilaterally, no rales and no wheezes Cardio Rate: regular rate Rhythm: regular rhythm Heart sounds: no murmurs GI Palpation (GI): Soft to palpation and nontender Auscultation: normal bowel sounds General: Yes no CVA tenderness Back/Spine/Pelvis Back: no CVA tenderness Thoracic/Lumbar Spine: No lumbar spinal tenderness Skin Rashes: no rashes Extrem General: Yes no clubbing, cyanosis or edema Results Reviewed Results Reviewed: Laboratory Tests 10/26/24 10/26/24 09:26 11:45 WBC 7.0 Hgb 13.1 L Hct 39.3 L Plt Count 249 Sodium 142 Potassium 3.7 Creatinine 1.51 H Estimated GFR 44 Fasting Glucose 136 H Hemoglobin A1c % 7.1 H Calcium 9.0 AST 24 ALT 17 Triglycerides 85 Cholesterol 144 LDL Cholesterol, Calc 91 HDL Cholesterol 36 L Vitamin B12 310 25-OH Vitamin D Total 21.9 L TSH 0.60 Free T4 1.24 Ur Specific [place] 1.020 Urine Protein 30 (1+) H Urine Glucose (UA) Negative Urine Blood Negative Urine Nitrite Negative Ur Leukocyte Esterase Negative Microalb/Creat Ratio 99.7 H Coding Level of Care Code Est Pt Level 4 (11883) Complex EM visit Add On G2211 Diagnoses Type 2 diabetes mellitus without complication, without long-term current use of insulin E11.9 Diabetes mellitus complication status: without complication Diabetes mellitus snf insulin use: without terminal operations manager use Diabetes mellitus type: type 2 Pure hypercholesterolemia E78.00 Benign essential hypertension I10 Graves disease E05.00 Stage 3a chronic kidney disease N18.31 Chronic kidney disease stage 3 subtype: stage 3a (GFR 45-59) Vitamin D deficiency E55.9 GERD without esophagitis K21.9 Benign prostatic hyperplasia with urinary hesitancy N40.1; R39.11 Lower urinary tract symptom detail: urinary hesitancy Lower urinary tract symptom presence: symptoms present Obesity (BMI 30-39.9) E66.9 Additional Codes JAMEY-7 Assessment Billing - JAMEY-7 Assessment Tool: JAMEY-7 Assessment [id number] ([id number]) PHQ-9 - 24726 - PHQ-9 Billing: Yes ([id number]) Assessment & Plan Assessment & Plan (1) Diabetes mellitus: Code(s): E11.9 - Type 2 diabetes mellitus without complications Category: Medical Qualifiers: Diabetes mellitus complication status: without complication Diabetes mellitus snf insulin use: without terminal operations manager use Diabetes mellitus type: type 2 Qualified Code(s): E11.9 - Type 2 diabetes mellitus without complications Plan: His HgbA1c was at 7.1% on his labs done a couple of days ago; was previously at 7.0% a few months ago - goal is <7.0% Reinforced diabetic diet - he admits that he was in [place] for about a month over the holidays and was not very compliant with his diet when he was there but he is now trying to get back on the diet that he is supposed to be on Continue Metformin 500 mg BID for now (2) Pure hypercholesterolemia: Code(s): E78.00 - Pure hypercholesterolemia, unspecified Category: Medical Plan: Results of his labs done a couple of days ago reviewed and discussed with patient - his lipids are still at goal and have actually improved slightly from previous, despite his claim that he was not compliant with his diet at all when he was in [place] for about a month over the recent holidays Reinforced low cholesterol diet Will recheck his labs and fasting lipids in 4 months for follow up (3) Benign essential hypertension: Code(s): I10 - Essential (primary) hypertension Category: Medical Plan: Reinforced low sodium diet - goal is systolic BP of at least 130 to 140 mm or less Patient states that he has been out of his BP med for over a week now so his BP is not surprisingly high today Will start him back on Losartan-HCT 100-25 mg QD - Rx refilled Patient is reminded to continue monitoring his blood pressure regularly (4) Graves disease: Comment: hyperthyroidism - in remission Code(s): E05.00 - Thyrotoxicosis with diffuse goiter without thyrotoxic crisis or storm Category: Medical Plan: S/P 3 courses of Tx with MMI (07/2010 to 12/2011; 01/2012 to 01/2013 and 12/2013 to 12/2014) Patient is presently clinically euthyroid with no acute symptoms His TFTs were again normal on his recent labs; will continue to monitor TFTs/TSH regularly Follow up with endocrinology (sees Dr. Deanna Haines) as scheduled (5) Chronic kidney disease, stage III (moderate): Code(s): N18.30 - Chronic kidney disease, stage 3 unspecified Category: Medical Qualifiers: Chronic kidney disease stage 3 subtype: stage 3a (GFR 45-59) Qualified Code(s): N18.31 - Chronic kidney disease, stage 3a Plan: Stable Will continue to monitor his GFR and renal function closely (6) Vitamin D deficiency: Code(s): E55.9 - Vitamin D deficiency, unspecified Category: Medical Plan: Continue Calcitriol 0.25 mcg QD and Vitamin D3 1000 units QD - he is cautioned again that his Vitamin D level is still low on his recent labs (7) GERD without esophagitis: Code(s): K21.9 - Gastro-esophageal reflux disease without esophagitis Category: Medical Plan: Dietary restrictions reinforced Continue Omeprazole 20 mg QD (8) BPH (benign prostatic hyperplasia): Code(s): N40.0 - Benign prostatic hyperplasia without lower urinary tract symptoms Category: Medical Qualifiers: Lower urinary tract symptom detail: urinary hesitancy Lower urinary tract symptom presence: symptoms present Qualified Code(s): N40.1 - Benign prostatic hyperplasia with lower urinary tract symptoms; R39.11 - Hesitancy of micturition Plan: Continue Tamsulosin 0.4 mg Q HS Follow up with urology as scheduled (9) Obesity (BMI 30-39.9): Code(s): E66.9 - Obesity, unspecified Category: Medical Plan: Reinforced diet/exercise as tolerated/lose weight Plan Follow up in 4 months Orders: Orders Lipid Panel 4 Months E78.00 - Pure hypercholesterolemia, unspecified UA CC w/rflx Micro + Cult 4 Months R30.0 - Dysuria Microalbumin, Random (w Creat) 4 Months E11.9 - Type 2 diabetes mellitus without complications Vitamin D 25-OH Total 4 Months E55.9 - Vitamin D deficiency, unspecified Free T4 (Free Thyroxine) 4 Months E05.00 - Thyrotoxicosis with diffuse goiter without thyrotoxic crisis or storm Hemoglobin A1c 4 Months E11.9 - Type 2 diabetes mellitus without complications Complete Blood Count Auto Diff 4 Months D64.9 - Anemia, unspecified Comprehensive [place]. Panel Fast 4 Months E78.00 - Pure hypercholesterolemia, unspecified Vitamin B12 and Folate 4 Months E53.8 - Deficiency of other specified B group vitamins Thyroid Stimulating Hormone 4 Months E05.00 - Thyrotoxicosis with diffuse goiter without thyrotoxic crisis or storm Medications: Changed From omeprazole 20 mg PO DAILY To omeprazole 20 mg PO DAILY 90 days 90 caps 1RF Refilled cyanocobalamin (vitamin B-12) 1,000 mcg PO DAILY 90 days 90 tabs 3RF losartan-hydrochlorothiazide 100-25 mg 1 tab PO DAILY 90 days 90 tabs 1RF metformin 500 mg PO BID 90 days 180 tabs 1RF E11.9 - Type 2 diabetes mellitus without complications blood sugar diagnostic ([facility] test strips) As directed 100 ea 3RF E11.9 - Type 2 diabetes mellitus without complications calcitriol 0.25 mcg PO DAILY 90 days 90 caps 3RF E55.9 - Vitamin D deficiency, unspecified cholecalciferol (vitamin D3) 25 mcg PO DAILY 90 days 90 caps 3RF E55.9 - Vitamin D deficiency, unspecified
== END 2024-10-28 10:26 | disposition home or self-care (01) ==
PROVIDERS: PCP Internal Medicine; Visit Provider Internal Medicine
DX: I12.9 Hypertensive chronic kidney disease with stage 1 through stage 4 chronic kidney disease, or unspecified chronic kidney disease (principal); E11.9 Type 2 diabetes mellitus without complications; N18.31 Chronic kidney disease, stage 3a; E66.811 Obesity, class 1; Z68.34 Body mass index [BMI] 34.0-34.9, adult; E78.00 Pure hypercholesterolemia, unspecified; E05.00 Thyrotoxicosis with diffuse goiter without thyrotoxic crisis or storm; E55.9 Vitamin D deficiency, unspecified; K21.9 Gastro-esophageal reflux disease without esophagitis; N40.1 Benign prostatic hyperplasia with lower urinary tract symptoms; R39.11 Hesitancy of micturition

== ENCOUNTER → 2024-10-28 09:34 | Outpatient (BNVA) | payer MEDICARE, SELFPAY | PROVIDERS: PCP Internal Medicine; Visit Provider Internal Medicine | DX: I12.9 Hypertensive chronic kidney disease with stage 1 through stage 4 chronic kidney disease, or unspecified chronic kidney disease (principal); E11.22 Type 2 diabetes mellitus with diabetic chronic kidney disease; N18.31 Chronic kidney disease, stage 3a; E78.00 Pure hypercholesterolemia, unspecified; E05.00 Thyrotoxicosis with diffuse goiter without thyrotoxic crisis or storm; E55.9 Vitamin D deficiency, unspecified; K21.9 Gastro-esophageal reflux disease without esophagitis; N40.1 Benign prostatic hyperplasia with lower urinary tract symptoms; R39.11 Hesitancy of micturition; E66.9 Obesity, unspecified | CPT/HCPCS: 96127; 99212 ==

== ENCOUNTER 2025-02-28 07:22 | Outpatient (REF) | payer MEDICARE, SELFPAY ==
[2025-02-28 07:35] LABS: MANUAL DIFF FLAG NO
[2025-02-28 08:02] LABS: Basophils Percent Auto 0.5 % (0-2); Eosinophils Absolute Auto 0.1 X10*3/uL (0.0-0.4); Eosinophils Percent Auto 0.9 % (0-4); Hematocrit 43.4 % (42.0-52.0); Hemoglobin 14.1 g/dl (14.0-18.0); Imm Gran Abs Auto 0.02 X10*3/uL (0.00-0.03); Imm Gran Pct Auto 0.2 % (0.0-0.4); Lymphocytes Absolute Auto 2.3 X10*3/uL (1.2-4.9); Lymphocytes Percent Auto 26.2 % (20-40); Mean Corpuscular HGB Conc 32.5 g/dl (31.0-36.0); Mean Corpuscular Hemoglobin 28.5 pg (27.0-33.0); Mean Corpuscular Volume 87.9 fL (80.0-98.0); Monocytes Absolute Auto 0.8 X10*3/uL (0.1-1.2); Monocytes Percent Auto 8.6 % (2-11); Neutrophils Absolute Auto 5.6 x10*3/uL (2.0-8.3); Neutrophils Percent Auto 63.6 % (45-73); Platelet Count 241 X10*3/uL (160-400); Red Blood Count 4.94 X10*6/uL (4.60-5.80); White Blood Count 8.8 X10*3/uL (4.8-10.8)
[2025-02-28 08:08] LABS: Estimated Average Glucose 174 mg/dL; Hemoglobin A1C 213.6354 umol/L; Hemoglobin A1c % 7.7 % (<6.0); Total Hemoglobin (HGBA1C) 3537.9368 umol/L
[2025-02-28 08:51] LABS: Appearance Urine Clear; Color Urine Yellow; Glucose Urine UA Negative (Negative); Leukocyte Esterase Urine Negative (Negative); Nitrite Urine Negative (Negative); PH 5.5 (5.0-9.0); Specific Gravity - Urine 1.015 (1.005-1.025); Urine Blood Negative (Negative); Urine Ketones Negative (Negative); Urine Protein Trace mg/dL (Neg-Trace)
[2025-02-28 08:58] LABS: Alanine Aminotransferase 12 U/L (0-40); Albumin Level 4.1 g/dL (3.5-5.0); Alkaline Phosphatase 66 U/L (39-117); Anion Gap 10 (12-20); Aspartate Amino Transferase 17 U/L (5-37); Bilirubin Total 0.4 mg/dL (0.0-1.0); Blood Urea Nitrogen 20 mg/dL (9-16); Calcium 9.6 mg/dL (8.4-10.2); Carbon Dioxide 26 mmol/L (22-29); Chloride 109 mmol/L (96-108); Cholesterol 153 mg/dL (<200); Estimated Glomerular Filt Rate 47; Glucose Fasting 156 mg/dL (60-99); HDL Cholesterol 36 mg/dL (>40); LDL Cholesterol Calculated 103 mg/dL (<100); Potassium 4.3 mmol/L (3.3-5.1); Sodium 141 mmol/L (135-145); Total Protein 7.9 g/dL (6.5-8.0); Triglycerides 71 mg/dL (<150)
[2025-02-28 09:13] LABS: Creatinine Urine 112.71 mg/dL; Microalbum/Creatinine Ratio Ur 68.3 ug/mg cr (<30)
[2025-02-28 09:16] LABS: Free T4 (Free Thyroxine) 1.23 ng/dL (0.71-1.85); Thyroid Stimulating Hormone 1.08 uIU/mL (0.32-4.0)
[2025-02-28 09:20] LABS: Folate 6.8 ng/mL (> or = 4.0); Vitamin B12 421 pg/mL (200-900)
== END 2025-02-28 07:23 | disposition home or self-care (01) ==
LOC: HO.LAB 07:22
PROVIDERS: PCP Internal Medicine; Visit Provider Internal Medicine
DX: R30.0 Dysuria (principal); E11.9 Type 2 diabetes mellitus without complications; E05.00 Thyrotoxicosis with diffuse goiter without thyrotoxic crisis or storm; D64.9 Anemia, unspecified; E53.8 Deficiency of other specified B group vitamins; E78.00 Pure hypercholesterolemia, unspecified; E55.9 Vitamin D deficiency, unspecified
CPT/HCPCS: 36415; 80053; 80061; 81003; 82043; 82306; 82570; 82607; 82746; 83036; 84439; 84443; 85025

== ENCOUNTER 2025-03-01 09:32 | Outpatient (REF) | payer MEDICARE, MEDICAID, SELFPAY ==
--- NOTE | ~2025-03-01 | XR_ITS ---
EXAMINATION: XR CHEST CLINICAL INFORMATION: R05.8 - Other specified cough COMPARISON: None available. TECHNIQUE: 2 views of the chest were obtained. FINDINGS: Borderline cardiac enlargement. Mediastinal and hilar contours appear normal. Aorta is mildly uncoiled and calcified. Mild prominence of the right paratracheal stripe, likely ectatic vasculature versus patulous esophagus. The lungs are mildly hyperaerated, however clear bilaterally. There is no pneumothorax or pleural effusion. There is no focal osseous or soft tissue abnormality. There are spinal degenerative changes. XR/XR chest 2V IMPRESSION: Borderline cardiac enlargement. Mildly hyperaerated lung parenchyma without active disease. Electronically signed by: Myles Sutherland MD 03/01/2025 11:25 AM EDT
--- OUTSIDE RECORDS SUMMARY | 2025-03-01 11:59 | XMS_ITS | Encounter Summary ---
Author Organization [employer] Address [address] [facility] [address] [place] [address] Care Team Providers Care Drawing Instructor Name Role Phone Unavailable Primary Care Provider Unavailabl e Encounter Details Date Type Department Care Team (Latest Contact Info) Description 08/03/2020 Abstract [facility] CONVERSIONS Dental, Provider, DDS Social History Tobacco [...]
--- OUTSIDE RECORDS SUMMARY | 2025-03-01 11:59 | XMS_ITS | Encounter Summary ---
Author Organization [employer] Address [address] [facility] [address] [place] [address] Care Team Providers Care Personal Lines Sales Rep Name Role Phone Unavailable Primary Care Provider Unavailabl e Encounter Details Date Type Department Care Team (Latest Contact Info) Description 04/21/2019 Abstract [facility] CONVERSIONS Dental, Provider, DDS Social History [...]
--- OUTSIDE RECORDS SUMMARY | 2025-03-01 11:59 | XMS_ITS | Encounter Summary ---
Author Organization [employer] Address [address] [facility] 7[address] [place] [address] Care Team Providers Care Informatics Physician Liaison Name Role Phone Unavailable Primary Care Provider Unavailabl e Encounter Details Date Type Department Care Team (Latest Contact Info) Description 10/19/2018 Abstract [facility] CONVERSIONS Dental, Provider, DDS Social History [...]
--- OUTSIDE RECORDS SUMMARY | 2025-03-01 11:59 | XMS_ITS | Encounter Summary ---
Author Organization [employer] Address [address] [facility] [address] [place] [address] Care Team Providers Care Railways Assistant Name Role Phone Unavailable Primary Care Provider Unavailabl e Encounter Details Date Type Department Care Team (Latest Contact Info) Description 01/16/2022 Abstract [facility] CONVERSIONS Dental, Provider, DDS Social [...]
--- OUTSIDE RECORDS SUMMARY | 2025-03-01 11:59 | XMS_ITS | Clinical Summary ---
Author Organization [employer] Address [address] [facility] [address] [place] [address] Care Team Providers Care Miller Helper Name Role Phone Unavailable Primary Care Provider [...]
== END 2025-03-01 09:33 | disposition home or self-care (01) ==
LOC: HO.XRAY 09:32
PROVIDERS: PCP Internal Medicine; Visit Provider Internal Medicine
DX: I12.9 Hypertensive chronic kidney disease with stage 1 through stage 4 chronic kidney disease, or unspecified chronic kidney disease (principal); E11.22 Type 2 diabetes mellitus with diabetic chronic kidney disease; N18.31 Chronic kidney disease, stage 3a; E78.00 Pure hypercholesterolemia, unspecified; E05.00 Thyrotoxicosis with diffuse goiter without thyrotoxic crisis or storm; E55.9 Vitamin D deficiency, unspecified; R05.8 Other specified cough; K21.9 Gastro-esophageal reflux disease without esophagitis; N40.1 Benign prostatic hyperplasia with lower urinary tract symptoms; R39.11 Hesitancy of micturition; H40.9 Unspecified glaucoma; E66.9 Obesity, unspecified; Z68.35 Body mass index [BMI] 35.0-35.9, adult; Z79.84 Long term (current) use of oral hypoglycemic drugs; Z79.899 Other long term (current) drug therapy
CPT/HCPCS: 71046; 96127; 99212

== ENCOUNTER 2025-03-01 09:32 | Outpatient (AMB) | payer MEDICARE, MEDICAID, SELFPAY ==
--- NOTE | 2025-03-01 09:33 | MHC.PC.OV ---
Vital Signs 03/01/25 09:34 Height 5 ft 4 in Weight 204 lb BMI 35.0 BP 140/86 H Blood Pressure Location Lt brachial Position Sitting Pulse 90 Pulse Source Pulse Oximeter Pulse Oximetry (%) 97 Oxygen Delivery Method Room Air Intake Visit Reasons: 4 month f/u Biometrics Specialist Required: No Accompanied by: Self / Same As Patient Allergies No Known Allergies Allergy (Verified 03/01/25 10:00) Medication List - Last Reconciled 03/01/25 by Jeronimo Bryant MD blood sugar diagnostic (OneTouch Verio test strips) As directed blood-glucose meter (Cell TherapyTouch Verio Meter) As directed blood-glucose meter (Advocate Blood Glucose Monitor) As directed calcitriol 0.25 mcg PO DAILY 90 days cholecalciferol (vitamin D3) 25 mcg PO DAILY 90 days cyanocobalamin (vitamin B-12) 1,000 mcg PO DAILY 90 days losartan-hydrochlorothiazide 100-25 mg 1 tab PO DAILY 90 days metformin 500 mg PO BID 90 days omeprazole 20 mg PO DAILY 90 days Tobacco use date assessed: 03/01/25 Fall risk assessment: No Falls in past year Last assessed Fall Risk: 03/01/25 Dental Screening Dental Screen Date: 03/01/25 Did you have a dental visit in the last 12 months?: No Did you have a dental problem in the last 6 months where you did not have access to dental care?: No Was dental information given to patient?: No HPI 4 month f/u HPI Details Patient comes in today for his follow up visit States that he feels okay He denies any headaches or dizziness Denies any chest pains, no increased SOB but his daughter states that he's had a recurrent cough for months now Patient states that he coughs up minimal clear to whitish phlegm at times and that there is no pattern to his cough and it can occur at any time of the day No nausea/vomiting, no abdominal pain No change in bowel habits noted Needs all of his Rx refilled He had his follow up labs done yesterday - to discuss his results Adds that he has 2 separate [facility] - one is scheduled for later this month and another one is with a retina specialist next month [facility] Medical History (Updated 03/01/25 @ 10:20 by Jeronimo Bryant MD) Glaucoma Chronic kidney disease, stage III (moderate) Graves' ophthalmopathy Graves disease Obesity (BMI 30-39.9) Pure hypercholesterolemia Diabetes mellitus Benign essential hypertension GERD without esophagitis BPH (benign prostatic hyperplasia) Surgical History Hx of cataract extraction (~05/2016) History of laser refractive surgery (~06/2014) Hx of cholecystectomy Hx of colonoscopy Family History Father Prostate cancer Brother Type 2 diabetes mellitus Sister Hyperthyroidism Social History Housing: House Patient Tobacco Use Status: Former Tobacco user Tobacco use type: Cigarette e-Cigarette/Vaping Use: Never Used service: No Current occupational status: retired Cognitive needs: No Hearing needs: No Vision needs: Yes Questionnaire PHQ-9 Over the last 2 weeks, how often have you been bothered by any of the following problems? 1. Little interest or pleasure in doing things: not at all 2. Feeling down, depressed, or hopeless: not at all 3. Trouble falling or staying asleep, or sleeping too much: not at all 4. Feeling tired or having little energy: not at all 5. Poor appetite or overeating: not at all 6. Feeling bad about yourself - or that you are a failure or have let yourself or your family down: not at all 7. Trouble concentrating on things, such as reading the newspaper or watching television: not at all 8. Moving or speaking so slowly that other people could have noticed. Or the opposite - being so fidgety or restless that you have been moving around a lot more than usual: not at all 9. Thoughts that you would be better off or of hurting yourself in some way: not at all Total score: 0 Depression Screening Interpretation: Negative Depression Screening Done: Yes 21263 - PHQ-9 Billing: Yes Source: Developed by Drs. Anup Dupont, Gina Zhang, Darinel Morrison and colleagues, with an educational dariusz from [employer]. Thrive Questionnaire Date Thrive assessed: 03/01/25 I am a: Patient What is your living situation today?: I have a steady place to live Within the past 12 months, did the food you bought not last and you didn't have the money to get more?: Never true Within the past 12 months, did you worry whether your food would run out before you got money to buy more?: Never true Do you have trouble paying for medicines?: No Do you have trouble getting transportation to medical appointments?: No Do you have trouble paying your heating and electricity bill?: No Do you have trouble taking care of your child, family member or friend?: No Do you have trouble with day-to-day activities such as bathing, preparing meals, shopping, managing finances, etc.?: No Are you currently unemployed and looking for a job?: No Are you interested in more education?: No Please select the resources that you would like help with: None Currently or been in a relationship where the following occur: No concerns reported THRIVE Score: 0 AUDIT C Alcohol Use Questionnaire (AUDIT-C) 1. How often do you have a drink containing alcohol?: Never 3. How often do you have six or more drinks on one occasion?: Never Total Score: 0 Score Reviewed/Action Taken: Yes JAMEY-7 AMB Questionnaire JAMEY-7 Date JAMEY - 7 assessed: 03/01/25 Feeling nervous, anxious, or on edge: 0 = Not at all Not being able to stop or control worryin = Not at all Worrying too much about different things: 0 = Not at all Trouble relaxin = Not at all Being so restless that it is hard to sit still: 0 = Not at all Becoming easily annoyed or irritable: 0 = Not at all Feeling afraid as if something awful might happen: 0 = Not at all Total JAMEY-7 score (0-4 normal; 5-9 mild; 10-14 moderate; 15-21 severe): 0 Source: Developed by Drs. Anup Dupont, Gina Zhang, Darinel Morrison and colleagues, with an educational dariusz from [employer]. JAMEY-7 Assessment Billing JAMEY-7 Assessment Tool: JAMEY-7 Assessment 45135 Review of Systems Const Denies chills, Denies fatigue, Denies fever(s) and Denies headache(s) ENT Denies dysphagia, Denies dizziness, Denies otalgia, Denies headache(s), Denies neck pain, Denies odynophagia and Denies sore throat Card Denies chest pain, Denies palpitations and Denies dyspnea Resp Denies chest congestion, Reports cough (recurrent - see HPI for details) and Denies dyspnea GI Denies abdominal pain, Denies constipation, Denies dysphagia, Denies heartburn, Denies diarrhea, Denies nausea, Denies odynophagia and Denies vomiting Denies dysuria, Denies nocturia and Denies urinary frequency Musc Denies back pain, Denies arthralgias and Denies neck pain Skin/Breast Denies rash Neuro Denies dizziness and Denies headache(s) Endo Denies fatigue and Denies palpitations Physical exam (Primary Care) Vital Signs: Last Vital Signs Pulse 90 03/01/25 09:34 BP 140/86 H 03/01/25 09:34 Pulse Ox 97 03/01/25 09:34 Oxygen Delivery Method Room Air 03/01/25 09:34 BMI result Body Mass Index 35.0 Tobacco/Smoking Status: Tobacco use Status Tobacco use date assessed 03/01/25 03/01/25 09:38 Patient Tobacco Use Status Former Tobacco user 03/01/25 09:38 Tobacco use type Cigarette 03/01/25 09:38 e-Cigarette/Vaping Use Never Used 03/01/25 09:38 PHQ-9: PHQ-9 Score PHQ-9: Total score 0 03/01/25 09:38 Depression Screening Interpretation: Negative Thrive Assessment: Date of Thrive Assessment Date Thrive assessed 03/01/25 03/01/25 09:38 Currently or been in a relationship where the following occur: No concerns reported Const General: no acute distress and alert HENMT Ears: TM's normal bilaterally and EAC's normal Throat: Yes posterior oropharynx normal and Yes tonsils normal (no TP congestion) Neck Neck: Yes supple and No lymphadenopathy Thyroid: Thyroid normal Resp Auscultation: clear to auscultation bilaterally, no rales and no wheezes Cardio Rate: regular rate Rhythm: regular rhythm Heart sounds: no murmurs GI Palpation (GI): Soft to palpation and nontender Auscultation: normal bowel sounds General: Yes no CVA tenderness Back/Spine/Pelvis Back: no CVA tenderness Thoracic/Lumbar Spine: No lumbar spinal tenderness Skin Rashes: no rashes Extrem General: Yes no clubbing, cyanosis or edema Results Reviewed Results Reviewed: Laboratory Tests 10/26/24 02/28/25 02/28/25 09:26 07:30 07:34 WBC 8.8 Hgb 14.1 Hct 43.4 Plt Count 241 Sodium 141 Potassium 4.3 Creatinine 1.51 H 1.44 H Estimated GFR 44 47 Fasting Glucose 156 H Hemoglobin A1c % 7.1 H 7.7 H Calcium 9.6 D AST 17 ALT 12 Triglycerides 71 Cholesterol 153 LDL Cholesterol, Calc 103 H HDL Cholesterol 36 L Vitamin B12 421 25-OH Vitamin D Total 28.0 L TSH 1.08 Free T4 1.23 Ur Specific [place] 1.015 Urine Protein Trace Urine Glucose (UA) Negative Urine Blood Negative Urine Nitrite Negative Ur Leukocyte Esterase Negative Microalb/Creat Ratio 68.3 H Coding Level of Care Code Est Pt Level 4 (78084) Complex EM visit Add On G2211 Diagnoses Type 2 diabetes mellitus without complication, without long-term current use of insulin E11.9 Diabetes mellitus type: type 2 Diabetes mellitus intermodal truck driver insulin use: 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 truck driver use Diabetes mellitus complication status: without complication Pure hypercholesterolemia E78.00 Benign essential hypertension I10 Graves disease E05.00 Stage 3a chronic kidney disease N18.31 Chronic kidney disease stage 3 subtype: stage 3a (GFR 45-59) Vitamin D deficiency E55.9 Recurrent cough R05.8 GERD without esophagitis K21.9 Benign prostatic hyperplasia with urinary hesitancy N40.1; R39.11 Lower urinary tract symptom presence: symptoms present Lower urinary tract symptom detail: urinary hesitancy Glaucoma, unspecified glaucoma type, unspecified laterality H40.9 Glaucoma type: unspecified Laterality: unspecified laterality Obesity (BMI 30-39.9) E66.9 Additional Codes JAMEY-7 Assessment Billing - JAMEY-7 Assessment Tool: JAMEY-7 Assessment 18867 ([id number]) PHQ-9 - 12037 - PHQ-9 Billing: Yes ([id number]) Assessment & Plan Assessment & Plan (1) Diabetes mellitus: Code(s): E11.9 - Type 2 diabetes mellitus without complications Category: Medical Qualifiers: Diabetes mellitus type: type 2 Diabetes mellitus intermodal truck driver insulin use: without usp use Diabetes mellitus complication status: without complication Qualified Code(s): E11.9 - Type 2 diabetes mellitus without complications Plan: His HgbA1c was at 7.7% on his labs done yesterday; was previously at 7.1% a few months ago - goal is <7.0% Reinforced diabetic diet Continue Metformin 500 mg BID Will start him additionally on Januvia 100 mg QD (2) Pure hypercholesterolemia: Code(s): E78.00 - Pure hypercholesterolemia, unspecified Category: Medical Plan: Results of his labs done yesterday reviewed and discussed with patient- he is advised that his cholesterol levels have gone up slightly from previous, likely in relation to his increasing HgbA1c recently Reinforced low cholesterol diet Will recheck his labs and fasting lipids in 4 months for follow up (3) Benign essential hypertension: Code(s): I10 - Essential (primary) hypertension Category: Medical Plan: Reinforced low sodium diet - goal is systolic BP of at least 130 to 140 mm or less Continue Losartan-HCT 100-25 mg QD Patient is reminded to continue monitoring his blood pressure regularly (4) Graves disease: Comment: hyperthyroidism - in remission Code(s): E05.00 - Thyrotoxicosis with diffuse goiter without thyrotoxic crisis or storm Category: Medical Plan: S/P 3 courses of Tx with MMI (07/2010 to 12/2011; 01/2012 to 01/2013 and 12/2013 to 12/2014) Patient is presently clinically euthyroid with no acute symptoms His TFTs were again normal on his recent labs; will continue to monitor TFTs/TSH regularly Follow up with endocrinology (sees Dr. Deanna Haines) as scheduled (5) Chronic kidney disease, stage III (moderate): Code(s): N18.30 - Chronic kidney disease, stage 3 unspecified Category: Medical Qualifiers: Chronic kidney disease stage 3 subtype: stage 3a (GFR 45-59) Qualified Code(s): N18.31 - Chronic kidney disease, stage 3a Plan: Patient is advised that his renal function/GFR has been stable so far Will continue to monitor his GFR and renal function closely (6) Vitamin D deficiency: Code(s): E55.9 - Vitamin D deficiency, unspecified Category: Medical Plan: Continue Calcitriol 0.25 mcg QD and Vitamin D3 1000 units QD - he is cautioned again that his Vitamin D level is still low on his recent labs (7) Recurrent cough: Code(s): R05.8 - Other specified cough Category: Medical Plan: (+) Hx of smoking but patient states that he quit smoking a long time ago Will send him for chest x-rays for now for further evaluation (8) GERD without esophagitis: Code(s): K21.9 - Gastro-esophageal reflux disease without esophagitis Category: Medical Plan: Dietary restrictions reinforced Continue Omeprazole 20 mg QD (9) BPH (benign prostatic hyperplasia): Code(s): N40.0 - Benign prostatic hyperplasia without lower urinary tract symptoms Category: Medical Qualifiers: Lower urinary tract symptom presence: symptoms present Lower urinary tract symptom detail: urinary hesitancy Qualified Code(s): N40.1 - Benign prostatic hyperplasia with lower urinary tract symptoms; R39.11 - Hesitancy of micturition Plan: Continue Tamsulosin 0.4 mg Q HS Follow up with urology as scheduled (10) Glaucoma: Code(s): H40.9 - Unspecified glaucoma Category: Medical Qualifiers: Glaucoma type: unspecified Laterality: unspecified laterality Qualified Code(s): H40.9 - Unspecified glaucoma Plan: This was apparently recently diagnosed Follow up with ophthalmology as scheduled (11) Obesity (BMI 30-39.9): Code(s): E66.9 - Obesity, unspecified Category: Medical Plan: Reinforced diet/exercise as tolerated/lose weight Plan Follow up in 4 months Orders: Orders Comprehensive [place]. Panel Fast 4 Months E78.00 - Pure hypercholesterolemia, unspecified Microalbumin, Random (w Creat) 4 Months E11.9 - Type 2 diabetes mellitus without complications Lipid Panel 4 Months E78.00 - Pure hypercholesterolemia, unspecified Hemoglobin A1c 4 Months E11.9 - Type 2 diabetes mellitus without complications Vitamin D 25-OH Total 4 Months E55.9 - Vitamin D deficiency, unspecified XR chest 2V Today R05.8 - Other specified cough Complete Blood Count Auto Diff 4 Months D64.9 - Anemia, unspecified TSH reflex Free T4 4 Months E78.00 - Pure hypercholesterolemia, unspecified UA CC w/rflx Micro + Cult 4 Months R30.0 - Dysuria Vitamin B12 and Folate 4 Months E53.8 - Deficiency of other specified B group vitamins Medications: New Januvia (sitagliptin phosphate) 100 mg PO DAILY 90 days 90 tabs 0RF NS Refilled cyanocobalamin (vitamin B-12) 1,000 mcg PO DAILY 90 days 90 tabs 3RF omeprazole 20 mg PO DAILY 90 days 90 caps 1RF calcitriol 0.25 mcg PO DAILY 90 days 90 caps 3RF E55.9 - Vitamin D deficiency, unspecified losartan-hydrochlorothiazide 100-25 mg 1 tab PO DAILY 90 days 90 tabs 1RF metformin 500 mg PO BID 90 days 180 tabs 1RF E11.9 - Type 2 diabetes mellitus without complications cholecalciferol (vitamin D3) 25 mcg PO DAILY 90 days 90 caps 3RF E55.9 - Vitamin D deficiency, unspecified
[2025-03-01 09:34] VITALS: BP 140/86; PULSE 90; O2SAT 97; BMI 35.0
--- OUTSIDE RECORDS SUMMARY | 2025-03-01 10:27 | XMS_ITS | Encounter Summary ---
Author Organization [employer] Address [address] [facility] [address] [place] [address] Care Team Providers Care Metal Machine Setter Name Role Phone Unavailable Primary Care Provider Unavailabl e Encounter Details Date Type Department Care Team (Latest Contact Info) Description 08/03/2020 Abstract [facility] CONVERSIONS Dental, Provider, DDS Social History Tobacco Use Types Packs/Day Years Used Date Smoking Tobacco: Never Assessed Sex and Gender Information Value Date Recorded Sex Assigned at Male 08/12/2022 10:24 AM EDT Legal Sex Male 10:24 AM EDT Gender Identity Male 08/12/2022 10:24 AM EDT Sexual Orientation Bisexual 08/12/2022 10 :24 AM EDT documented as of this encounter Plan of Treatment Not on file documented as of this encounter Visit Diagnoses Not on filedocumented in this encounter
--- OUTSIDE RECORDS SUMMARY | 2025-03-01 10:27 | XMS_ITS | Encounter Summary ---
Author Organization [employer] Address [address] [facility] [address] [place] [address] Care Team Providers Care Tax Associate Attorney Name Role Phone Unavailable Primary Care Provider Unavailabl e Encounter Details Date Type Department Care Team (Latest Contact Info) Description 04/21/2019 Abstract [facility] CONVERSIONS Dental, Provider, DDS Social History Tobacco [...]
--- OUTSIDE RECORDS SUMMARY | 2025-03-01 10:27 | XMS_ITS | Clinical Summary ---
Author Organization [employer] Address [address] [facility] [address] [place] [address] Care Team Providers Care Industrial Technologist Name Role Phone Unavailable Primary Care Provider Unavailabl e Social History Tobacco Use Types Packs/Day Years Used Date Smoking Tobacco: Never Assessed Sex and Gender Information Value Date Recorded Sex Assigned at Male 08/12/2022 10:24 AM EDT Legal Sex Male 10:24 AM EDT Gender Identity Male 08/12/2022 10:24 AM EDT Sexual Orientation Bisexual 08/12/2022 10 :24 AM EDT Last Filed Vital Signs Vital Sign Reading Time Taken Comments Blood Pressure 160/84 05/15/2021 12:08 AM EDT Pulse 72 10/25/2019 12:01 AM EST Temperature - - Respiratory Rate - - Oxygen Saturation - - Inhaled Oxygen Concentration - - Weight - - Height - - Body Mass Index - - Plan of Treatment Health Maintenance Due Date Last Done Comments Depression Screening 1941 Lipid Panel 1941 Alcohol/Substance Use Screening 1953 Tobacco Screening 1953 DTaP/Tdap/Td Vaccines (1 - Tdap) 1960 Pneumococcal Vaccine: 50+ Ye ars (1 of 1 - PCV) 1991 Zoster Vaccines (1 of 2) 1991 RSV Patients and Pa tients Aged 60 years or older (1 - 1-dose 75+ series) 2016 COVID-19 Vaccine ( - 2023-2 5 season) 2024 Influenza Vaccine (#1) 2024 HIB Vaccines Aged Out No longer eligi ble based on patient's age to complete this topic HPV Vaccines Aged Out No longer eligi ble based on patient's age to complete this topic Hepatitis A Vaccines Aged Out No long er eligible based on patient's age to complete this topic Hepatitis B Vaccines Aged Out No long er eligible based on patient's age to complete this topic IPV Vaccines Aged Out No longer eligi ble based on patient's age to complete this topic Meningococcal B Vaccine Aged Out No l onger eligible based on patient's age to complete this topic Meningococcal Vaccine Aged Out No leonidas zaid eligible based on patient's age to complete this topic RSV under 20 months Aged Out No longe r eligible based on patient's age to complete this topic Rotavirus Vaccines Aged Out No longer eligible based on patient's age to complete this topic
--- OUTSIDE RECORDS SUMMARY | 2025-03-01 10:27 | XMS_ITS | Encounter Summary ---
Author Organization [email or web address] Address [address] [facility] [address] [place] [address] Care Team Providers Care Underwriting Technician Name Role Phone Unavailable Primary Care Provider Unavailabl e Encounter Details Date Type Department Care Team (Latest Contact Info) Description 10/19/2018 Abstract [facility] CONVERSIONS Dental, Provider, DDS Social History Tobacco [...]
--- OUTSIDE RECORDS SUMMARY | 2025-03-01 10:27 | XMS_ITS | Encounter Summary ---
Author Organization [employer] Address [address] [facility] [address] [place] [address] Care Team Providers Care Automotive Instructor Name Role Phone Unavailable Primary Care Provider Unavailabl e Encounter Details Date Type Department Care Team (Latest Contact Info) Description 01/16/2022 Abstract [facility] CONVERSIONS Dental, Provider, DDS Social History [...]
== END 2025-03-01 10:26 | disposition home or self-care (01) ==
LOC: HO.HMCH 09:33
PROVIDERS: PCP Internal Medicine; Visit Provider Internal Medicine
DX: E11.9 Type 2 diabetes mellitus without complications (principal); E78.00 Pure hypercholesterolemia, unspecified; I10 Essential (primary) hypertension; E05.00 Thyrotoxicosis with diffuse goiter without thyrotoxic crisis or storm; N18.31 Chronic kidney disease, stage 3a; E55.9 Vitamin D deficiency, unspecified; R05.8 Other specified cough; K21.9 Gastro-esophageal reflux disease without esophagitis; N40.1 Benign prostatic hyperplasia with lower urinary tract symptoms; R39.11 Hesitancy of micturition; H40.9 Unspecified glaucoma; E66.9 Obesity, unspecified

== ENCOUNTER → 2025-03-01 10:51 | Outpatient (BNV) | payer MEDICARE, MEDICAID, SELFPAY | PROVIDERS: PCP Internal Medicine; Visit Provider Radiology Diagnostic Radiology | DX: R05.8 Other specified cough (principal) | CPT/HCPCS: 71046 ==

== ENCOUNTER 2025-07-05 08:55 | Outpatient (REF) | payer MEDICARE, MEDICAID, SELFPAY ==
--- OUTSIDE RECORDS SUMMARY | 2025-07-05 10:13 | XMS_ITS | Encounter Summary ---
Author Organization [employer] Address [address] [facility] [address] [place] [address] Care Team Providers Care Angiography Technologist Name Role Phone Unavailable Primary Care Provider Unavailabl e Encounter Details Date Type Department Care Team (Latest Contact Info) Description 04/21/2019 Abstract [facility] CONVERSIONS Dental, Provider, DDS Social History [...]
--- OUTSIDE RECORDS SUMMARY | 2025-07-05 10:13 | XMS_ITS | Encounter Summary ---
Author Organization [employer] Address [address] [facility] [address] [place] [address] Care Team Providers Care Social Sciences Instructor Name Role Phone Unavailable Primary Care Provider Unavailabl e Encounter Details Date Type Department Care Team (Latest Contact Info) Description 10/19/2018 Abstract [facility] CONVERSIONS Dental, Provider, DDS Social [...]
--- OUTSIDE RECORDS SUMMARY | 2025-07-05 10:13 | XMS_ITS | Clinical Summary ---
Author Organization [employer] Address [address] [facility] 7t [place] [address] Care Team Providers Care Network Infrastructure Architect Name Role Phone Unavailable Primary Care Provider [...] COVID-19 Vaccine ( - 2023-2 5 season) 2025 Influenza Vaccine (#1) 2025 HIB Vaccines Aged Out No longer eligi [...]
--- OUTSIDE RECORDS SUMMARY | 2025-07-05 10:13 | XMS_ITS | Encounter Summary ---
Author Organization [employer] Address [address] [facility] 7t [place] [address] Care Team Providers Care Material Liaison Name Role Phone Unavailable Primary Care Provider Unavailabl e Encounter Details Date Type Department Care Team (Latest Contact Info) Description 01/16/2022 Abstract [facility] CONVERSIONS Dental, Provider, DDS Social History [...]
--- OUTSIDE RECORDS SUMMARY | 2025-07-05 10:13 | XMS_ITS | Encounter Summary ---
Author Organization [employer] Address [address] [facility] 7t [place] [address] Care Team Providers Care Medical Device Sales Representative Name Role Phone Unavailable Primary Care Provider Unavailabl e Encounter Details Date Type Department Care Team (Latest Contact Info) Description 08/03/2020 Abstract [facility] CONVERSIONS Dental, Provider, DDS Social History [...]
[2025-07-05 11:43] LABS: Microalbum/Creatinine Ratio Ur 37.0 ug/mg cr (<30)
[2025-07-05 11:50] LABS: Folate 6.1 ng/mL (> or = 4.0); Vitamin B12 665 pg/mL (200-900)
[2025-07-05 12:48] LABS: Anion Gap 11 (12-20)
[2025-07-05 12:53] LABS: Alanine Aminotransferase 8 U/L (0-40); Albumin Level 4.1 g/dL (3.5-5.0); Alkaline Phosphatase 60 U/L (39-117); Aspartate Amino Transferase 17 U/L (5-37); Blood Urea Nitrogen 18 mg/dL (9-16); Calcium 9.0 mg/dL (8.4-10.2); Carbon Dioxide 24 mmol/L (22-29); Chloride 111 mmol/L (96-108); Cholesterol 151 mg/dL (<200); Estimated Glomerular Filt Rate 48; HDL Cholesterol 34 mg/dL (>40); Potassium 4.0 mmol/L (3.3-5.1); Sodium 142 mmol/L (135-145); Total Protein 7.5 g/dL (6.5-8.0); Triglycerides 86 mg/dL (<150)
== END 2025-07-05 08:56 | disposition home or self-care (01) ==
LOC: HO.LAB 08:55
PROVIDERS: PCP Internal Medicine; Visit Provider Internal Medicine
DX: E11.9 Type 2 diabetes mellitus without complications (principal); E53.8 Deficiency of other specified B group vitamins; R30.0 Dysuria; E78.00 Pure hypercholesterolemia, unspecified; E55.9 Vitamin D deficiency, unspecified; D64.9 Anemia, unspecified
CPT/HCPCS: 36415; 80053; 80061; 81003; 82043; 82306; 82570; 82607; 82746; 83036; 84443; 85025

== ENCOUNTER 2025-07-08 09:00 | Outpatient (AMB) | payer MEDICARE, MEDICAID, SELFPAY ==
[2025-07-08 09:04] VITALS: BP 124/80; PULSE 90; O2SAT 96; BMI 33.5
--- NOTE | 2025-07-08 09:04 | MHC.PC.OV ---
Vital Signs 07/08/25 09:04 Height 5 ft 4 in Weight 195 lb BMI 33.5 BP 124/80 Blood Pressure Location Lt brachial Position Sitting Pulse 90 Pulse Source Pulse Oximeter Pulse Oximetry (%) 96 Oxygen Delivery Method Room Air Intake Visit Reasons: DM, HTN, GERD, CKD Regional Flatbed Truck Driver Required: No Accompanied by: Self / Same As Patient Allergies No Known Allergies Allergy (Verified 07/08/25 09:38) Medication List - Last Reconciled 07/08/25 by Jeronimo Bryant MD blood sugar diagnostic (OneTouch Verio test strips) As directed blood-glucose meter (Applauzeuch Verio Meter) As directed blood-glucose meter (Advocate Blood Glucose Monitor) As directed calcitriol 0.25 mcg PO DAILY 90 days cholecalciferol (vitamin D3) 25 mcg PO DAILY 90 days cyanocobalamin (vitamin B-12) 1,000 mcg PO DAILY 90 days dorzolamide-timolol 22.3-6.8 mg/mL 1 drp ophthalmic (eye) BID Januvia (sitagliptin phosphate) 100 mg PO DAILY 90 days NS latanoprost 0.005% 1 drp ophthalmic (eye) BEDTIME losartan-hydrochlorothiazide 100-25 mg 1 tab PO DAILY 90 days metformin 500 mg PO BID 90 days omeprazole 20 mg PO DAILY 90 days Tobacco use date assessed: 07/08/25 Fall risk assessment: No Falls in past year Last assessed Fall Risk: 07/08/25 Dental Screening Dental Screen Date: 07/08/25 Did you have a dental visit in the last 12 months?: No Did you have a dental problem in the last 6 months where you did not have access to dental care?: No Was dental information given to patient?: Patient has dentist HPI DM, HTN, GERD, CKD HPI Details Patient comes in today for his follow up visit - states that he just got back from a trip to [place], [place] about 4 days ago He was down there for a few weeks visiting his family down there States that he feels okay except for some pain and swelling in both of his hands for the past few days Notes that he cannot completely close his hands and make a fist due to the swelling He denies any headaches or dizziness Denies any chest pains, no increased SOB but still has a recurrent non-productive cough, which he states started up again a couple of weeks ago when he was still down in [place] No nausea/vomiting, no abdominal pain No change in bowel habits noted He had his follow up labs done a few days ago - to discuss his results [facility] Medical History Glaucoma Chronic kidney disease, stage III (moderate) Graves' ophthalmopathy Graves disease Obesity (BMI 30-39.9) Pure hypercholesterolemia Diabetes mellitus Benign essential hypertension GERD without esophagitis BPH (benign prostatic hyperplasia) Surgical History Hx of cataract extraction (~05/2016) History of laser refractive surgery (~06/2014) Hx of cholecystectomy Hx of colonoscopy Family History Father Prostate cancer Brother Type 2 diabetes mellitus Sister Hyperthyroidism Social History Housing: House Patient Tobacco Use Status: Former Tobacco user Tobacco use type: Cigarette e-Cigarette/Vaping Use: Never Used service: No Current occupational status: retired Cognitive needs: No Hearing needs: No Vision needs: Yes Questionnaire PHQ-9 Over the last 2 weeks, how often have you been bothered by any of the following problems? 1. Little interest or pleasure in doing things: not at all 2. Feeling down, depressed, or hopeless: not at all 3. Trouble falling or staying asleep, or sleeping too much: not at all 4. Feeling tired or having little energy: not at all 5. Poor appetite or overeating: not at all 6. Feeling bad about yourself - or that you are a failure or have let yourself or your family down: not at all 7. Trouble concentrating on things, such as reading the newspaper or watching television: not at all 8. Moving or speaking so slowly that other people could have noticed. Or the opposite - being so fidgety or restless that you have been moving around a lot more than usual: not at all 9. Thoughts that you would be better off or of hurting yourself in some way: not at all Total score: 0 Depression Screening Interpretation: Negative Depression Screening Done: Yes 46115 - PHQ-9 Billing: Yes Source: Developed by Drs. Anup Dupont, Darinel Rose and colleagues, with an educational dariusz from [employer]. Thrive Questionnaire Date Thrive assessed: 07/08/25 I am a: Patient What is your living situation today?: I have a steady place to live Within the past 12 months, did the food you bought not last and you didn't have the money to get more?: Never true Within the past 12 months, did you worry whether your food would run out before you got money to buy more?: Never true Do you have trouble paying for medicines?: No Do you have trouble getting transportation to medical appointments?: No Do you have trouble paying your heating and electricity bill?: No Do you have trouble taking care of your child, family member or friend?: No Do you have trouble with day-to-day activities such as bathing, preparing meals, shopping, managing finances, etc.?: No Are you currently unemployed and looking for a job?: No Are you interested in more education?: No Please select the resources that you would like help with: None Currently or been in a relationship where the following occur: No concerns reported THRIVE Score: 0 AUDIT C Alcohol Use Questionnaire (AUDIT-C) 1. How often do you have a drink containing alcohol?: Never 3. How often do you have six or more drinks on one occasion?: Never Total Score: 0 Score Reviewed/Action Taken: Yes JAMEY-7 AMB Questionnaire JAMEY-7 Date JAMEY - 7 assessed: 03/01/25 Feeling nervous, anxious, or on edge: 0 = Not at all Not being able to stop or control worryin = Not at all Worrying too much about different things: 0 = Not at all Trouble relaxin = Not at all Being so restless that it is hard to sit still: 0 = Not at all Becoming easily annoyed or irritable: 0 = Not at all Feeling afraid as if something awful might happen: 0 = Not at all Total JAMEY-7 score (0-4 normal; 5-9 mild; 10-14 moderate; 15-21 severe): 0 Source: Developed by Gina Sparks Kurt Kroenke and colleagues, with an educational dariusz from [employer]. Review of Systems Const Denies chills, Denies fatigue, Denies fever(s) and Denies headache(s) ENT Denies dysphagia, Denies dizziness, Denies otalgia, Denies headache(s), Denies neck pain, Denies odynophagia and Denies sore throat Card Denies chest pain, Denies palpitations and Denies dyspnea Resp Denies chest congestion, Reports cough (recurrent, non-productive), Denies dyspnea and Denies wheezing GI Denies abdominal pain, Denies constipation, Denies dysphagia, Denies heartburn, Denies diarrhea, Denies nausea, Denies odynophagia and Denies vomiting Denies difficulty urinating, Denies dysuria, Denies nocturia and Denies urinary frequency Musc Denies back pain, Reports arthralgias ((+) some pain and swelling of both hands - see HPI) and Denies neck pain Skin/Breast Denies rash Neuro Denies dizziness and Denies headache(s) Endo Denies fatigue and Denies palpitations Aller/Immun Denies wheezing Physical exam (Primary Care) Vital Signs: Last Vital Signs Pulse 90 07/08/25 09:04 BP 124/80 07/08/25 09:04 Pulse Ox 96 07/08/25 09:04 Oxygen Delivery Method Room Air 07/08/25 09:04 BMI result Body Mass Index 33.5 Tobacco/Smoking Status: Tobacco use Status Tobacco use date assessed 07/08/25 07/08/25 09:15 Patient Tobacco Use Status Former Tobacco user 07/08/25 09:15 Tobacco use type Cigarette 07/08/25 09:15 e-Cigarette/Vaping Use Never Used 07/08/25 09:15 PHQ-9: PHQ-9 Score PHQ-9: Total score 0 07/08/25 09:15 Depression Screening Interpretation: Negative Thrive Assessment: Date of Thrive Assessment Date Thrive assessed 03/01/25 07/08/25 09:15 Currently or been in a relationship where the following occur: No concerns reported Const General: no acute distress and alert HENMT Ears: TM's normal bilaterally and EAC's normal Throat: Yes posterior oropharynx normal and Yes tonsils normal (no TP congestion) Neck Neck: Yes supple and No lymphadenopathy Thyroid: Thyroid normal Resp Auscultation: clear to auscultation bilaterally, no rales and no wheezes Cardio Rate: regular rate Rhythm: regular rhythm Heart sounds: no murmurs GI Palpation (GI): Soft to palpation and nontender Auscultation: normal bowel sounds General: Yes no CVA tenderness Back/Spine/Pelvis Back: no CVA tenderness Thoracic/Lumbar Spine: No lumbar spinal tenderness Skin Rashes: no rashes Extrem Other: (+) mild tenderness and swelling of both hands and fingers - he is unable to completely close his hands and make a fist due to the swelling in his hands Results Reviewed Results Reviewed: Laboratory Tests 07/05/25 07/05/25 09:12 09:20 WBC 7.3 Hgb 11.8 L Hct 35.9 L Plt Count 258 Sodium 142 Potassium 4.0 Creatinine 1.41 H Estimated GFR 48 Fasting Glucose 123 H Hemoglobin A1c % 6.2 H Calcium 9.0 D AST 17 ALT 8 Triglycerides 86 Cholesterol 151 LDL Cholesterol, Calc 100 H HDL Cholesterol 34 L Vitamin B12 665 25-OH Vitamin D Total 32.7 TSH 0.69 Ur Specific [place] 1.015 Urine Protein Trace Urine Glucose (UA) Negative Urine Blood Negative Urine Nitrite Negative Ur Leukocyte Esterase Negative Microalb/Creat Ratio 37.0 H Coding Level of Care Code Est Pt Level 4 (78895) Complex EM visit Add On G2211 Diagnoses Type 2 diabetes mellitus without complication, without long-term current use of insulin E11.9 Diabetes mellitus type: type 2 Diabetes mellitus terminal gauger supervisor insulin use: without longterm use Diabetes mellitus complication status: without complication Pure hypercholesterolemia E78.00 Benign essential hypertension I10 Graves disease E05.00 Stage 3a chronic kidney disease N18.31 Chronic kidney disease stage 3 subtype: stage 3a (GFR 45-59) Vitamin D deficiency E55.9 Recurrent cough R05.8 Bilateral hand swelling M79.89 GERD without esophagitis K21.9 Benign prostatic hyperplasia with urinary hesitancy N40.1; R39.11 Lower urinary tract symptom presence: symptoms present Lower urinary tract symptom detail: urinary hesitancy Glaucoma, unspecified glaucoma type, unspecified laterality H40.9 Glaucoma type: unspecified Laterality: unspecified laterality Obesity (BMI 30-39.9) E66.9 Additional Codes PHQ-9 - 13993 - PHQ-9 Billing: Yes ([id number]) Assessment & Plan Assessment & Plan (1) Diabetes mellitus: Code(s): E11.9 - Type 2 diabetes mellitus without complications Category: Medical Qualifiers: Diabetes mellitus type: type 2 Diabetes mellitus terminal gauger supervisor insulin use: without longterm use Diabetes mellitus complication status: without complication Qualified Code(s): E11.9 - Type 2 diabetes mellitus without complications Plan: His HgbA1c improved to 6.2% on his labs done a few days ago; was previously at 7.7% a few months ago - goal is <7.0% Reinforced diabetic diet Continue Metformin 500 mg BID and Januvia 100 mg QD (2) Pure hypercholesterolemia: Code(s): E78.00 - Pure hypercholesterolemia, unspecified Category: Medical Plan: Results of his labs done a few days ago reviewed and discussed with patient Reinforced low cholesterol diet Will recheck his labs and fasting lipids in 4 months for follow up (3) Benign essential hypertension: Code(s): I10 - Essential (primary) hypertension Category: Medical Plan: Reinforced low sodium diet - goal is systolic BP of at least 130 to 140 mm or less Continue Losartan-HCT 100-25 mg QD Patient is reminded to continue monitoring his blood pressure regularly (4) Graves disease: Comment: hyperthyroidism - in remission Code(s): E05.00 - Thyrotoxicosis with diffuse goiter without thyrotoxic crisis or storm Category: Medical Plan: S/P 3 courses of Tx with MMI (07/2010 to 12/2011; 01/2012 to 01/2013 and 12/2013 to 12/2014) Patient is presently clinically euthyroid with no acute symptoms His TFTs were again normal on his recent labs; will continue to monitor TFTs/TSH regularly Follow up with endocrinology (sees Dr. Deanna Haines) as scheduled (5) Chronic kidney disease, stage III (moderate): Code(s): N18.30 - Chronic kidney disease, stage 3 unspecified Category: Medical Qualifiers: Chronic kidney disease stage 3 subtype: stage 3a (GFR 45-59) Qualified Code(s): N18.31 - Chronic kidney disease, stage 3a Plan: Stable Will continue to monitor his GFR and renal function closely (6) Vitamin D deficiency: Code(s): E55.9 - Vitamin D deficiency, unspecified Category: Medical Plan: Continue Calcitriol 0.25 mcg QD and Vitamin D3 1000 units QD - he is cautioned again that his Vitamin D level is still low on his recent labs (7) Recurrent cough: Code(s): R05.8 - Other specified cough Category: Medical Plan: (+) Hx of smoking but patient states that he quit smoking a long time ago Chest x-rays done back in February 2025 revealed (+) borderline cardiac enlargement with mildly hyperaerated lung parenchyma without active disease Will start him on a trial of Incruse Ellipta 62.5 mcg 1 inhalation QD (8) Bilateral hand swelling: Code(s): M79.89 - Other specified soft tissue disorders Category: Medical Plan: Discussed with patient that his recent hand symptoms are likely due to OA Will send him for x-rays of both hands FERNANDO for further evaluation Will also include some screening labs with his next lab draw in 4 months for further evaluation for any potential inflammatory joint disease (9) GERD without esophagitis: Code(s): K21.9 - Gastro-esophageal reflux disease without esophagitis Category: Medical Plan: Dietary restrictions reinforced Continue Omeprazole 20 mg QD (10) BPH (benign prostatic hyperplasia): Code(s): N40.0 - Benign prostatic hyperplasia without lower urinary tract symptoms Category: Medical Qualifiers: Lower urinary tract symptom presence: symptoms present Lower urinary tract symptom detail: urinary hesitancy Qualified Code(s): N40.1 - Benign prostatic hyperplasia with lower urinary tract symptoms; R39.11 - Hesitancy of micturition Plan: Continue Tamsulosin 0.4 mg Q HS Follow up with urology as scheduled (11) Glaucoma: Code(s): H40.9 - Unspecified glaucoma Category: Medical Qualifiers: Glaucoma type: unspecified Laterality: unspecified laterality Qualified Code(s): H40.9 - Unspecified glaucoma Plan: Continue Dorzolamide-timolol 22.3-6.8 mg/ml 1 drop into each eye BID and Latanoprost 0.005% 1 drop into each eye Q HS Follow up with ophthalmology as scheduled (12) Obesity (BMI 30-39.9): Code(s): E66.9 - Obesity, unspecified Category: Medical Plan: Reinforced diet/exercise as tolerated/lose weight - he has been able to lose about 9 to 10 pounds since his last visit Plan Follow up in 4 months Orders: Orders Complete Blood Count Auto Diff 4 Months D64.9 - Anemia, unspecified Lipid Panel 4 Months E78.00 - Pure hypercholesterolemia, unspecified Microalbumin, Random (w Creat) 4 Months E11.9 - Type 2 diabetes mellitus without complications UA CC w/rflx Micro + Cult 4 Months R30.0 - Dysuria Thyroid Stimulating Hormone 4 Months E05.00 - 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 Panel Fast 4 Months E78.00 - Pure hypercholesterolemia, unspecified Hemoglobin A1c 4 Months E11.9 - Type 2 diabetes mellitus without complications Vitamin B12 and Folate 4 Months E53.8 - Deficiency of other specified B group vitamins Vitamin D 25-OH Total 4 Months E55.9 - Vitamin D deficiency, unspecified C Reactive Protein 4 Months M79.89 - Other specified soft tissue disorders Uric Acid 4 Months M79.89 - Other specified soft tissue disorders Medications: New Incruse Ellipta 62.5 mcg/actuation (umeclidinium) 1 inh inhalation DAILY 30 ea 3RF 30 days NS
--- OUTSIDE RECORDS SUMMARY | 2025-07-08 09:37 | XMS_ITS | Encounter Summary ---
Author Organization [employer] Address [address] [facility] 7t [place] [address] Care Team Providers Care Fiberglass Boat Assembly Supervisor Name Role Phone Unavailable Primary Care Provider Unavailabl e Encounter Details Date Type Department Care Team (Latest Contact Info) Description 01/16/[address] [facility] CONVERSIONS Dental, Provider, DDS Social History [...]
--- OUTSIDE RECORDS SUMMARY | 2025-07-08 09:37 | XMS_ITS | Clinical Summary ---
Author Organization [employer] Address [address] [facility] 7t [place] [address] Care Team Providers Care Sealer Sander Name Role Phone Unavailable Primary Care Provider [...]
--- OUTSIDE RECORDS SUMMARY | 2025-07-08 09:37 | XMS_ITS | Encounter Summary ---
Author Organization [employer] Address [address] [facility] 7t [place] [address] Care Team Providers Care Boat Cleaning Supervisor Name Role Phone Unavailable Primary Care Provider Unavailabl e Encounter Details Date Type Department Care Team (Latest Contact Info) Description 08/03/2020 Abstract [facility] CONVERSIONS Dental, Provider, DDS Social History Tobacco [...]
--- OUTSIDE RECORDS SUMMARY | 2025-07-08 09:37 | XMS_ITS | Clinical Summary ---
Author Organization [facility] Address [address] [address] Phone Care Team Providers Care Mental Retardation Nurse Name Role Phone Jeronimo Bryant MD Primary Care Provider [phone] Allergies No known active allergies Medications losartan-hydroC HLOROthiazide (HYZAAR) 100-25 mg per tablet Take 1 tablet by mouth every morning. 11/25/2023 Active metFORMIN (GLUCOPHAGE) 500 MG tablet Take 1 tablet by mouth 2 (two) times a day. 11/25/2023 Active calcitriol (ROCALTROL) 0.25 MCG capsule Take 1 capsule by mouth every morning. 11/25/2023 Active amLODIPine (NORVASC) 5 MG tablet Take 5 mg by mouth daily. Active cyanocobalamin, vitamin B-12, 1000 MCG tablet Take 1 tablet by mouth every morning. 10/28/2024 Active VITAMIN D3 25 mcg (1,000 unit) capsule Take 1 capsule by mouth every morning. 10/28/2024 Active ONETOUCH VERIO Strp strips 1 each daily. 10/28/2024 Active Active Problems Problem Noted Date Diagnosed Date Graves' disease in remission 12/04/2023 Assessment & Plan (12/06/2024 11:30 AM EST): Graves' disease in remission. Had 3 courses of methimazole between 07/2010 and 12/2014. Last TSH 1.06 on 12/01/24. Thyroid is small without palpable nodule. -We discussed symptoms of hypo and hyperthyroidism, patient to call if concern. Otherwise would repeat TSH yearly. -Patient will follow-up with PCP and will see me as needed Assessment & Plan (12/11/2023 9:48 AM EST): Graves' disease in remission. Had 3 courses of methimazole between 07/2010 and 12/2014. Last TSH 1.03 on 11/13/2023. Thyroid is small without palpable nodule. We discussed symptoms of hypo and hyperthyroidism, patient to call if concern. Otherwise would repeat TSH yearly. Social History Tobacco Use Types Packs/Day Years Used Date Smoking Tobacco: Never Smokeless Tobacco: Never Tobacco Cessation:Counseling Given: Not Answered Alcohol Use Standard Drinks/Week Comments Never 0 (1 standard drink = 0.6 oz pur e alcohol) Education Answer Date Recorded Are you interested in more education? Not on manuel e 07/03/2023 Are you concerned about learning? Not on file 07/03/2023 No 07/03/2023 No 07/03/2023 Digital Access Answer Date Recorded No 07/03/2023 No 07/03/2023 Reliable internet access at home? Not on file 07/03/2023 Device with a working camera? Not on file Sex and Gender Information Value Date Recorded Sex Assigned at Not on file Legal Sex Male 10:13 AM EDT Gender Identity Not on file Sexual Orientation Not on file Last Filed Vital Signs Vital Sign Reading Time Taken Comments Blood Pressure 138/80 12/06/2024 10:42 AM EST Pulse 99 12/06/2024 10:42 AM EST Temperature - - Respiratory Rate - - Oxygen Saturation 95% 12/06/2024 10: 42 AM EST Inhaled Oxygen Concentration - - Weight 93.4 kg (205 lb 12.8 oz) 025 10:42 AM EST Height 158 cm (5' 2.21 ) 12/06/2024 10: 42 AM EST Body Mass Index 37.39 12/06/2024 10:42 AM EST Plan of Treatment Health Maintenance Due Date Last Done Comments Adult Td,Tdap Booster 1940 CREATININE LEVEL 1941 POTASSIUM LEVEL 1941 DEPRESSION SCREENING 1953 PNEUMOCOCCAL VACCINES (50+ y ears) (1 of 1 - PCV) 1991 ZOSTER VACCINES (1 of 2) 1991 RSV VACCINE (1 - 1-dose 75+ series) 2016 INFLUENZA VACCINE (#1) 2025 COVID-19 VACCINE (2023-2 5 season) 2025 HEPATITIS A VACCINES Aged Out No long er eligible based on patient's age to complete this topic HIB VACCINES Aged Out No longer eligi ble based on patient's age to complete this topic MENINGOCOCCAL VACCINES (ACWY) Aged Out No longer eligible based on patient's age to complete this topic MENINGOCOCCAL VACCINES (B) Aged Out N o longer eligible based on patient's age to complete this topic Medical Devices Not on file Insurance MEDICARE PART A & B MEDICARE PART A & B MEDICARE PART A & B MEDICARE PART A & B MEDICARE PART A & B MEDICARE PART A & B Care Teams Mental Retardation Nurse Relationship Specialty Start Date End Date Jeronimo Bryant MD [address] [place] [address] [place] [address] PCP - General Internal Medicine 04/23/23 Additional Source Comments The information contained in this document represents components of the legal health record. It is not the complete legal health record.[facility]
--- OUTSIDE RECORDS SUMMARY | 2025-07-08 09:37 | XMS_ITS | Encounter Summary ---
Author Organization [employer] Address [address] [facility] 7t [place] [address] Care Team Providers Care Staff Combat Information Center Officer Name Role Phone Unavailable Primary Care Provider Unavailabl e Encounter Details Date Type Department Care Team (Latest Contact Info) Description 04/21/2019 Abstract [facility] CONVERSIONS Dental, Provider, DDS Social History Tobacco [...]
--- OUTSIDE RECORDS SUMMARY | 2025-07-08 09:37 | XMS_ITS | Encounter Summary ---
Author Organization [employer] Address [address] [facility] 7t [place] [address] Care Team Providers Care Tape Cutting Machine Operator Name Role Phone Unavailable Primary Care Provider Unavailabl e Encounter Details Date Type Department Care Team (Latest Contact Info) Description 10/19/2018 Abstract [facility] CONVERSIONS Dental, Provider, DDS Social History [...]
== END 2025-07-08 09:55 | disposition home or self-care (01) ==
LOC: HO.HMCH 09:01
PROVIDERS: PCP Internal Medicine; Visit Provider Internal Medicine
DX: I12.9 Hypertensive chronic kidney disease with stage 1 through stage 4 chronic kidney disease, or unspecified chronic kidney disease (principal); E11.9 Type 2 diabetes mellitus without complications; N18.31 Chronic kidney disease, stage 3a; E78.00 Pure hypercholesterolemia, unspecified; E05.00 Thyrotoxicosis with diffuse goiter without thyrotoxic crisis or storm; E55.9 Vitamin D deficiency, unspecified; R05.8 Other specified cough; M79.89 Other specified soft tissue disorders; K21.9 Gastro-esophageal reflux disease without esophagitis; N40.1 Benign prostatic hyperplasia with lower urinary tract symptoms; R39.11 Hesitancy of micturition; H40.9 Unspecified glaucoma

== ENCOUNTER → 2025-07-08 09:00 | Outpatient (BNVA) | payer MEDICARE, OTHER, SELFPAY | PROVIDERS: PCP Internal Medicine; Visit Provider Internal Medicine | DX: I12.9 Hypertensive chronic kidney disease with stage 1 through stage 4 chronic kidney disease, or unspecified chronic kidney disease (principal); E11.22 Type 2 diabetes mellitus with diabetic chronic kidney disease; N18.31 Chronic kidney disease, stage 3a; E78.00 Pure hypercholesterolemia, unspecified; E05.00 Thyrotoxicosis with diffuse goiter without thyrotoxic crisis or storm; E55.9 Vitamin D deficiency, unspecified; R05.8 Other specified cough; R60.0 Localized edema; K21.9 Gastro-esophageal reflux disease without esophagitis; N40.1 Benign prostatic hyperplasia with lower urinary tract symptoms; R39.11 Hesitancy of micturition; H40.9 Unspecified glaucoma; E66.9 Obesity, unspecified; Z68.33 Body mass index [BMI] 33.0-33.9, adult; Z71.3 Dietary counseling and surveillance | CPT/HCPCS: 96127; 99212 ==

== ENCOUNTER 2025-07-11 10:17 | Outpatient (REF) | payer MEDICARE, OTHER, SELFPAY ==
--- NOTE | ~2025-07-11 | XR_ITS ---
Exam: XR HAND 3 VIEWS BILATERAL, bilateral hand x-rays TECHNIQUE: AP, lateral, and oblique views upper extremity, bilateral hands INDICATION: M79.641 - Pain in right hand COMPARISON: None available. FINDINGS: RIGHT HAND: There is moderate asymmetric narrowing of the AP joint of thumb with marginal osteophytes. Small marginal sites are present at the first MCP joint. At the DIP joint demonstrates mild asymmetric narrowing, small marginal osteophytes, and degenerative cystic change in the head of the middle phalanx. Minimal marginal osteophytes are present at the second DIP joint. LEFT HAND: There is mild asymmetric narrowing of the IP joint of the thumb with moderate marginal osteophytes. There are small marginal ossified involving the first MCP joint, and the third and fourth DIP joints and second MCP joint. 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 Left hand: Mild osteoarthritis is most pronounced at the IP joint of thumb. 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 This could be posttraumatic or could be due to an underlying lesion such as a glomus tumor resulting in a chronic erosion. Correlate for symptoms. Electronically signed by: Erick Martin MD 07/11/2025 11:25 AM EDT
--- OUTSIDE RECORDS SUMMARY | 2025-07-11 11:27 | XMS_ITS | Encounter Summary ---
Author Organization [email or web address] Address [address] [facility] [address] [place] [address] Care Team Providers Care Sealing And Canceling Machine Operator Name Role Phone Unavailable Primary Care Provider Unavailabl e Encounter Details Date Type Department Care Team (Latest Contact Info) Description 04/21/2019 Abstract [facility] CONVERSIONS Dental, Provider, DDS Social History [...]
--- OUTSIDE RECORDS SUMMARY | 2025-07-11 11:27 | XMS_ITS | Encounter Summary ---
Author Organization [employer] Address [address] [facility] [address] [place] [address] Care Team Providers Care Hydraulic Jack Operator Name Role Phone Unavailable Primary Care Provider Unavailabl e Encounter Details Date Type Department Care Team (Latest Contact Info) Description 08/03/2020 Abstract [facility] CONVERSIONS Dental, Provider, DDS Social History [...]
--- OUTSIDE RECORDS SUMMARY | 2025-07-11 11:27 | XMS_ITS | Clinical Summary ---
Author Organization [employer] Address [address] [facility] [address] [place] [address] Care Team Providers Care Assistant Refinery Operator Name Role Phone Unavailable Primary Care [...]
--- OUTSIDE RECORDS SUMMARY | 2025-07-11 11:27 | XMS_ITS | Encounter Summary ---
Author Organization [employer] Address [address] [facility] [address] [place] [address] Care Team Providers Care [employer] Director Name Role Phone Unavailable Primary Care Provider Unavailabl e Encounter Details Date Type Department Care Team (Latest Contact Info) Description 10/19/2018 Abstract [facility] CONVERSIONS Dental, Provider, DDS Social [...]
--- OUTSIDE RECORDS SUMMARY | 2025-07-11 11:27 | XMS_ITS | Encounter Summary ---
Author Organization [employer] Address [address] [facility] [address] [place] [address] Care Team Providers Care Grader Operator Name Role Phone Unavailable Primary Care Provider Unavailabl e Encounter Details Date Type Department Care Team (Latest Contact Info) Description 01/16/2022 Abstract [facility] CONVERSIONS Dental, Provider, DDS Social History [...]
--- OUTSIDE RECORDS SUMMARY | 2025-07-11 11:27 | XMS_ITS | Clinical Summary ---
Author Organization [facility] Address [address] [address] Phone Care Team Providers Care Grave Cleaner Name Role Phone Jeronimo Bryant MD Primary Care Provider [phone] Allergies No known active allergies Medications losartan-hydroC [...] MEDICARE PART A & B Care Teams Grave Cleaner Relationship Specialty Start Date End Date Jeronimo Bryant MD [address] [place] [address] [place] [address] PCP - General Internal Medicine 04/23/23 Additional Source Comments The information contained in this document represents components of the legal health record. It is not the complete legal health record.[facility]
== END 2025-07-11 10:18 | disposition home or self-care (01) ==
LOC: HO.XRAY 10:17
PROVIDERS: PCP Internal Medicine; Visit Provider Internal Medicine
DX: M79.641 Pain in right hand (principal); M79.642 Pain in left hand
CPT/HCPCS: 73130

== ENCOUNTER → 2025-07-11 10:22 | Outpatient (BNV) | payer MEDICARE, MEDICAID, SELFPAY | PROVIDERS: PCP Internal Medicine; Visit Provider Radiology Diagnostic Radiology | DX: M19.041 Primary osteoarthritis, right hand (principal) | CPT/HCPCS: 73130 ==